=== PATIENT | male | born 1970 | race Hispanic/Latino ===

== ENCOUNTER 2019-10-03 22:30 | Inpatient (IN) | payer OTHER ==
[~2019-10-03 22:30] MED LIST: Iopamidol 370 76% 50 ML VIAL FS ONE; Iopamidol-370 76% 500 ML 1 ML ONE
[2019-10-04] MEDS ORDERED: Morphine 4 MG/ML VIAL ONE ×2 (00:02→03:19)
[2019-10-04] MEDS ORDERED: Ondansetron PF 4 MG/2 ML Vial ONE (00:02)
[2019-10-04 00:15] LABS: #Eosinphils 0.1 thou/uL (0.0-0.7); #Monocytes 0.8 thou/uL (0.11-0.59); #Neutrophils 5.2 thou/uL (1.40-6.50); %Basophils 0.2 % (0.0-1.0); %Eosinophils 1.9 % (0.0-10.0); %Lymphocytes 13.6 % (21.0-51.0); %Monocytes 11.5 % (0.0-10.0); %Neutrophils 72.7 % (42.0-75.0); Hemoglobin 11.2 g/dL (14.0-18.0); Mean Corpuscular HGB CONC 31.5 g/dL (32.0-36.0); Mean Corpuscular Volume 82.3 fL (78.0-98.0); Mean Platelet Volume 6.8 fL (7.4-10.4); Platelet Count 375 thou/uL (130-400); RBC Distribution Width 16.1 % (11.5-14.5); Red Blood Cell (RBC) Count 4.32 mill/uL (4.70-6.10); White Blood Cell (WBC) Count 7.1 thou/uL (4.8-10.8)
[2019-10-04 00:27] LABS: ALT (SGPT) 23 U/L (8-55); AST (SGOT) 18 U/L (5-34); Albumin 3.5 g/dL (3.5-5.0); Alkaline Phosphatase 108 U/L (40-110); Anion Gap 13 mmol/L (10-20); BUN (Urea Nitrogen) 15 mg/dL (8.9-20.6); Bilirubin, Total Less than 0.2 mg/dL (0.2-1.2); Calc. Creatinine Clearance 0 mL/min (70-130); Calcium 8.7 mg/dL (7.8-10.44); Carbon Dioxide 17 mmol/L (22-29); Chloride 109 mmol/L (98-107); Estimated GFR-MDRD 73; Globulin 3.2 g/dL (2.4-3.5); Glucose 139 mg/dL (70-105); Lipase 33 U/L (8-78); Potassium 4.1 mmol/L (3.5-5.1); Protein, Total 6.7 g/dL (6.0-8.3); Sodium 135 mmol/L (136-145)
--- NOTE | 2019-10-04 08:36 | CT ---
PRELIMINARY REPORT/[facility]/EMERGENCY AFTER HOURS PROCEDURE This report was discussed with Beth Raymundo by Imani Shaver on October 04, 2019 03:36:00 CDT. Addendum electronically signed by Imani Shaver on October 04, 2019 3:37:30 AM CDT EXAM: CT Abdomen and Pelvis with Intravenous Contrast CLINICAL HISTORY: M49, pt reports that he had abdominal pain and leaking stool from the old ileostomy site LL abdomen . pt c/o abdominal pain since last Monday. Surgical history of appendectomy, hernia repair, cholostomy, ileostomy. TECHNIQUE: Axial computed tomography images of the abdomen and pelvis with intravenous contrast. CONTRAST: With; ISOVUE & ISOVUE 370,100mL COMPARISON: None provided. FINDINGS: LUNG BASES: No basilar airspace consolidation or pleural effusion. LIVER: Diffuse fatty infiltration of the liver. GALLBLADDER AND BILE DUCTS: The gallbladder is surgically absent. PANCREAS: Unremarkable. SPLEEN: Unremarkable. ADRENAL GLANDS: Unremarkable. KIDNEYS, URETERS, AND BLADDER: Unremarkable. No hydronephrosis or nephrolithiasis. No ureteral or bladder calculi. STOMACH AND BOWEL: Diastasis of the rectus abdominis musculature and a complex anterior abdominal wall hernia resulting in mechanical small bowel obstruction at the level of the stoma approximately 7 cm to the left of midline. APPENDIX: No CT evidence for appendicitis. PERITONEUM: No free fluid. No free air. REPRODUCTIVE: Unremarkable as visualized. VASCULATURE: No aortic aneurysm. BONES: Left ischial decubitus ulcer. Osseous irregularity of the underlying left ischial tuberosity raises t he possibility of osteomyelitis. ABDOMINAL WALL AND SOFT TISSUES: Unremarkable. IMPRESSION: 1. Diastasis of the rectus abdominis musculature and a complex anterior abdominal wall hernia resulti ng in mechanical small bowel obstruction at the level of the stoma approximately 7 cm to the left of midline. 2. Left ischial decubitus ulcer. Osseous irregularity of the underlying left ischial tuberosity raise s the possibility of osteomyelitis. ELECTRONICALLY SIGNED BY: Alhaji Arriola MD October 04, 2019 3:22:42 AM CDT This report is intended for review by the ordering physician only, in accordance of law. If you recei ve this report in error, please call [facility] at [phone]. FINAL REPORT Final report by Dr. Laureano Emergency after-hours study CT ABDOMEN WITH CONTRAST CT PELVIS WITH CONTRAST: DATE: 10/04/2019 HISTORY: 49-year-old male with abdominal pain COMPARISON: None TECHNIQUE: IV injection of iodinated contrast media: administered. Oral contrast media:Administered Isovue FINDINGS: Agree with preliminary report by [facility]. IMPRESSION: High-grade small bowel obstruction at large ventral abdominal hernia. Transcribed Date/Time: 10/04/2019 8:43 AM
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
[2019-10-04] MEDS ORDERED: Sodium Chloride 0.9% 1,000 ML IV SCH (09:25)
[2019-10-04] MEDS ORDERED: Heparin 1,000 UNITS/ML VIAL ONE (09:34)
--- NOTE | 2019-10-04 10:08 | RAD ---
PORTABLE CHEST: Date: 10/04/2019 HISTORY: NG tube placement. FINDINGS: This is a low chest film done specifically of the NG tube placement. NG tube is seen in the fundus of the stomach. Visualized lung rocha show no infiltrates. Heart size appears enlarged. IMPRESSION: NG tube in fundus region of stomach. POS: MAYUR
[2019-10-04] MEDS ORDERED: HumaLOG 300 UNITS/3 ML VIAL SC PRN (11:34)
[2019-10-04] MEDS ORDERED: Dextrose 5% in Water 1,000 ML IV PRN (11:34)
[2019-10-04] MEDS ORDERED: Promethazine HCl 25 MG/ML VIAL IM/IV PRN (11:34)
[2019-10-04] MEDS ORDERED: Dextrose 50% Abboject 50 ML SYRINGE SLOW IVP PRN (11:34)
[2019-10-04] MEDS ORDERED: Ondansetron PF 4 MG/2 ML Vial IVP PRN (11:34)
[2019-10-04 11:47] LABS: SARS-CoV-2 MS2 Positive; SARS-CoV-2 N Gene Negative; SARS-CoV-2 S Gene Negative; SARS-CoV-2 orf1ab Negative
[2019-10-04] MEDS: Ketorolac Tromethamine 30 MG/ML VIAL IVP PRN ×2 (12:30→18:14)
[2019-10-04 14:15] VITALS: BMI 36.0
[2019-10-04] MEDS: Sodium Chloride 0.9% 1,000 ML IV SCH (17:55)
[2019-10-05] MEDS: Ketorolac Tromethamine 30 MG/ML VIAL IVP PRN ×4 (00:55→23:41)
[2019-10-05] MEDS: Sodium Chloride 0.9% 1,000 ML IV SCH ×3 (02:25→17:06)
[2019-10-05 08:23] LABS: #Eosinphils 0.3 thou/uL (0.0-0.7); #Monocytes 0.8 thou/uL (0.11-0.59); #Neutrophils 6.1 thou/uL (1.40-6.50); %Basophils 0.3 % (0.0-1.0); %Eosinophils 3.3 % (0.0-10.0); %Lymphocytes 11.7 % (21.0-51.0); %Monocytes 9.6 % (0.0-10.0); %Neutrophils 75.2 % (42.0-75.0); Hemoglobin 11.7 g/dL (14.0-18.0); Mean Corpuscular HGB CONC 31.6 g/dL (32.0-36.0); Mean Corpuscular Hemoglobin 26.8 pg (27.0-31.0); Mean Corpuscular Volume 84.8 fL (78.0-98.0); Mean Platelet Volume 6.6 fL (7.4-10.4); Platelet Count 382 thou/uL (130-400); RBC Distribution Width 16.2 % (11.5-14.5); Red Blood Cell (RBC) Count 4.36 mill/uL (4.70-6.10); White Blood Cell (WBC) Count 8.1 thou/uL (4.8-10.8)
[2019-10-05 08:34] LABS: Anion Gap 16 mmol/L (10-20); BUN (Urea Nitrogen) 11 mg/dL (8.9-20.6); Calc. Creatinine Clearance 150 mL/min (70-130); Calcium 8.5 mg/dL (7.8-10.44); Carbon Dioxide 18 mmol/L (22-29); Chloride 112 mmol/L (98-107); Estimated GFR-MDRD Greater than 90; Glucose 66 mg/dL (70-105); Potassium 3.6 mmol/L (3.5-5.1); Sodium 142 mmol/L (136-145)
--- NOTE | 2019-10-05 10:18 | PRG ---
DATE OF SERVICE: 10/05/2019 SUBJECTIVE: Mr. Boykin feels better today. He is hungry. He had more NG output overnight, but he has been doing quite a lot of ice chips, still has ostomy output as well. Drainage in his left lower quadrant persist. OBJECTIVE: VITAL SIGNS: He is afebrile and his vital signs are stable. ABDOMEN: Soft. His left-sided incisional hernia is reducible and not tender on exam. His parastomal hernia has loss of domain and not completely reducible. He has persistent purulent drainage in the left lower quadrant. LABORATORY DATA: His white cell count is 8, hemoglobin 11, and platelet count is 382. No bands. Sodium 142, potassium 3.6, creatinine 0.83. His glucoses have been controlled, 90s to 100s. COVID is negative. ASSESSMENT: 1. History of complex abdominal surgery with parastomal and incisional hernias and loss of domain. 2. Likely infected mesh in the left lower quadrant. 3. Partial versus high-grade small bowel obstruction seen in area of left-sided hernia, this hernia is reducible. PLAN: Continue conservative management. He has no urgency for operation at this point. His hernias are going to be very difficult to fix and would most certainly require some sort of component separation, would prefer not to operate on him in this setting, get him to a tertiary care center to do that. My plan was small-bowel follow-through tomorrow to further evaluate this obstruction and if that is normal, discontinue the NG and start diet, and then Monday likely perform incision and drainage of this left lower quadrant wound where I suspect he has infected mesh. Job ID: [id number]
[2019-10-05] MEDS: Fentanyl 100 MCG/2 ML VIAL SLOW IVP PRN ×2 (11:00→21:31)
[2019-10-06] MEDS: Sodium Chloride 0.9% 1,000 ML IV SCH ×4 (01:37→18:29)
[2019-10-06] MEDS: Fentanyl 100 MCG/2 ML VIAL SLOW IVP PRN ×5 (03:25→22:57)
[2019-10-06] MEDS ORDERED: MD-Gastroview 120 ML BOT ONE (09:20)
--- NOTE | 2019-10-06 09:55 | PRG ---
DATE OF SERVICE: 10/06/2019 SUBJECTIVE: Mr. Boykin feels more bloated today. OBJECTIVE: VITAL SIGNS: He is afebrile. Vital signs are stable. NG output overnight is only 250 with 300 of stool. ABDOMEN: Soft. The left-sided hernia is reducible. He has persistent purulent drainage in the left lower quadrant. ASSESSMENT: Partial to partial small-bowel obstruction, likely in his abdomen. Question if related to this left-sided hernia, although the hernia is freely reducible. PLAN: Gastrografin small-bowel follow-through today. I think his symptoms are mostly chronic. If the small-bowel follow-through is normal, we will allow him clear liquids and then plan to open up his left lower quadrant wound where the fascia is likely infected. Job ID: [id number]
--- NOTE | 2019-10-06 11:55 | RAD ---
Exam: Gastrografin small bowel HISTORY: Evaluate for small bowel obstruction COMPARISON: none Correlation: Abdomen and pelvic CT 10/04/2019 FINDINGS: Gastrografin was administered via NG tube. Gastrografin opacifies distended loops of proxim al small bowel. Despite dilatation, contrast does opacify the bag at the level of the right lower quadrant ostomy. Distal small bowel loops appear to be decompressed. IMPRESSION: Probable partial small bowel obstruction.
[2019-10-07] MEDS: Fentanyl 100 MCG/2 ML VIAL SLOW IVP PRN ×2 (01:55→05:21)
[2019-10-07] MEDS: Sodium Chloride 0.9% 1,000 ML IV SCH ×3 (01:56→15:00)
[2019-10-07] MEDS ORDERED: Fentanyl 100 MCG/2 ML VIAL ONE ×3 (11:31→13:25)
[2019-10-07] MEDS ORDERED: Lidocaine 2% Jelly 5 ML TUBE ONE (11:32)
[2019-10-07] MEDS ORDERED: Glycopyrrolate 0.2 MG/ML 5 ML SYRINGE ONE (11:33)
[2019-10-07] MEDS ORDERED: Ondansetron PF 4 MG/2 ML Vial ONE (11:33)
[2019-10-07] MEDS ORDERED: Rocuronium Bromide 10 MG/ML (10ML VIAL) ONE (11:33)
[2019-10-07] MEDS ORDERED: PHENYLEPHRINE-NS 100 MCG/ML 10 ML SYRINGE ONE (11:33)
[2019-10-07] MEDS ORDERED: Lidocaine 1% PF 5 ML VIAL ONE (11:33)
[2019-10-07] MEDS ORDERED: PROPOFOL 200 MG/20 ML VIAL ONE (11:33)
[2019-10-07] MEDS ORDERED: Promethazine HCl 25 MG/ML VIAL SLOW IVP PRN (12:43)
[2019-10-07] MEDS ORDERED: Promethazine HCl 25 MG/ML VIAL IM PRN (12:43)
[2019-10-07] MEDS ORDERED: Ondansetron HCl/PF 4 MG/2 ML Vial IVP PRN (12:43)
--- NOTE | 2019-10-07 13:08 | OP ---
DATE OF PROCEDURE: 10/07/2019 PREOPERATIVE DIAGNOSIS: Left lower quadrant chronic wound. POSTOPERATIVE DIAGNOSES: 1. Left lower quadrant chronic wound. 2. Infected foreign body, left lower quadrant wound. ANESTHESIA: General. ESTIMATED BLOOD LOSS: Minimal. COMPLICATIONS: None. SPECIMENS: Cultures taken for anaerobes and aerobes. FINDINGS: The 2 sinus tracts in the left lower quadrant go down to chronic foreign body, suture and mesh. DESCRIPTION OF PROCEDURE: Small amount of exposed mesh was debrided. All foreign body was removed. Wound was irrigated and packed using wet-to-dry saline-soaked gauze. The patient will need a wound VAC and chronic wound care. We will await cultures for antibiotics. The patient was sent to Recovery in stable condition. All instrument counts, needle counts, and lap counts were correct. Job ID: [id number]
[2019-10-07] MEDS: HYDROcodone/Acetaminophen 7.5/325 mg Tablet PO PRN ×2 (17:55→22:55)
[2019-10-07] MEDS: CEFAZOLIN 2 GM in Premix Bag 1 BAG IVPB SCH (21:23)
[2019-10-08] MEDS: HYDROcodone/Acetaminophen 7.5/325 mg Tablet PO PRN ×3 (04:19→19:52)
[2019-10-08] MEDS: Sodium Chloride 0.9% 1,000 ML IV SCH ×2 (04:24→18:13)
[2019-10-08] MEDS: CEFAZOLIN 2 GM in Premix Bag 1 BAG IVPB SCH ×3 (05:35→21:01)
[2019-10-08] MEDS: Fentanyl 100 MCG/2 ML VIAL SLOW IVP PRN ×3 (08:26→23:18)
--- NOTE | 2019-10-08 10:40 | PRG ---
DATE OF SERVICE: 10/08/2019 SUBJECTIVE: Mr. Boykin has no complaints. He is hungry. The nurse notes significant drainage from the left lower quadrant wound. The wound VAC was displaced. OBJECTIVE: VITAL SIGNS: He is afebrile. Vital signs are stable. ABDOMEN: Soft, minimally distended. No abdominal pain. Left lower quadrant wound has wound VAC in place. ASSESSMENT: Left lower quadrant infected mesh, status post debridement. PLAN: Continue wound VAC, he will need ocean transportation intermediary. We will await culture results, likely will need antibiotics IV as well. We will start planning for him to go somewhere where they can do complex wound care and IV antibiotics. Job ID: [id number]
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
[2019-10-09] MEDS: Fentanyl 100 MCG/2 ML VIAL SLOW IVP PRN ×4 (02:15→20:19)
[2019-10-09 05:57] LABS: #Eosinphils 0.1 thou/uL (0.0-0.7); #Lymphocytes 0.8 thou/uL (1.20-3.40); #Monocytes 0.6 thou/uL (0.11-0.59); %Basophils 0.3 % (0.0-1.0); %Eosinophils 2.2 % (0.0-10.0); %Lymphocytes 12.1 % (21.0-51.0); %Monocytes 9.6 % (0.0-10.0); %Neutrophils 75.8 % (42.0-75.0); Hemoglobin 11.2 g/dL (14.0-18.0); Mean Corpuscular HGB CONC 31.9 g/dL (32.0-36.0); Mean Corpuscular Hemoglobin 26.7 pg (27.0-31.0); Mean Corpuscular Volume 83.7 fL (78.0-98.0); Mean Platelet Volume 6.4 fL (7.4-10.4); Platelet Count 346 thou/uL (130-400); RBC Distribution Width 15.8 % (11.5-14.5); White Blood Cell (WBC) Count 6.5 thou/uL (4.8-10.8)
[2019-10-09] MEDS: CEFAZOLIN 2 GM in Premix Bag 1 BAG IVPB SCH (06:08)
[2019-10-09 06:17] LABS: Anion Gap 12 mmol/L (10-20); BUN (Urea Nitrogen) 4 mg/dL (8.9-20.6); Calc. Creatinine Clearance 150 mL/min (70-130); Calcium 8.3 mg/dL (7.8-10.44); Carbon Dioxide 21 mmol/L (22-29); Chloride 108 mmol/L (98-107); Estimated GFR-MDRD Greater than 90; Glucose 107 mg/dL (70-105); Potassium 3.3 mmol/L (3.5-5.1); Sodium 138 mmol/L (136-145)
[2019-10-09] MEDS: Sodium Chloride 0.9% 1,000 ML IV SCH (06:31)
[2019-10-09] MEDS: HYDROcodone/Acetaminophen 7.5/325 mg Tablet PO PRN ×2 (08:11→17:15)
[2019-10-09] MEDS ORDERED: Sodium Chloride 0.9% 1,000 ML IV SCH (08:12)
[2019-10-09] MEDS: metroNIDAZOLE 500 MG TAB PO SCH ×3 (08:37→20:19)
[2019-10-10] MEDS: Fentanyl 100 MCG/2 ML VIAL SLOW IVP PRN ×3 (00:29→20:45)
[2019-10-10] MEDS: HYDROcodone/Acetaminophen 7.5/325 mg Tablet PO PRN ×3 (03:36→16:54)
[2019-10-10] MEDS: metroNIDAZOLE 500 MG TAB PO SCH ×3 (08:07→20:40)
[2019-10-10] MEDS ORDERED: Ondansetron ODT 4 MG TAB SL PRN (10:10)
[2019-10-10] MEDS ORDERED: Ondansetron PF 4 MG/2 ML Vial IVP PRN (10:10)
--- NOTE | 2019-10-10 11:01 | PRG ---
DATE OF SERVICE: 10/10/2019 SUBJECTIVE: Mr. Boykin is seen on dressing change today. He is complaining of pain at his open wound site. No nausea or vomiting. He is tolerating regular food. OBJECTIVE: He is afebrile. Vital signs are stable. He has stool and air in his bag. His abdominal wound is seen on dressing change. It has a foul smell. It smells like stool. There is some stool stained appearing purulent material in the wound VAC. 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 PLAN: For now, we will allow him to continue diet, see what the drainage does. Continue wound VAC. May have to switch to Instill VAC. If this is in fact the fistula, his hospitalization will be prolonged because there are no good options for underlying surgery. The presence of the foreign body would make any closure of the fistula unlikely. Ideally, he would be transferred to [place] for higher level of care and for what is likely going to be long-term wound care nutrition issues managing this fistula. Job ID: [id number]
[2019-10-11] MEDS: HYDROcodone/Acetaminophen 7.5/325 mg Tablet PO PRN ×3 (00:35→20:31)
[2019-10-11] MEDS: Fentanyl 100 MCG/2 ML VIAL SLOW IVP PRN ×3 (05:06→16:23)
[2019-10-11 05:38] LABS: #Eosinphils 0.3 thou/uL (0.0-0.7); #Lymphocytes 1.2 thou/uL (1.20-3.40); #Monocytes 0.7 thou/uL (0.11-0.59); #Neutrophils 3.7 thou/uL (1.40-6.50); %Basophils 0.4 % (0.0-1.0); %Eosinophils 4.7 % (0.0-10.0); %Monocytes 11.1 % (0.0-10.0); %Neutrophils 62.8 % (42.0-75.0); Hemoglobin 11.6 g/dL (14.0-18.0); Mean Corpuscular HGB CONC 30.9 g/dL (32.0-36.0); Mean Corpuscular Hemoglobin 26.4 pg (27.0-31.0); Mean Corpuscular Volume 85.7 fL (78.0-98.0); Mean Platelet Volume 6.6 fL (7.4-10.4); Platelet Count 349 thou/uL (130-400); RBC Distribution Width 16.1 % (11.5-14.5); Red Blood Cell (RBC) Count 4.39 mill/uL (4.70-6.10); White Blood Cell (WBC) Count 5.9 thou/uL (4.8-10.8)
[2019-10-11 05:57] LABS: Anion Gap 13 mmol/L (10-20); BUN (Urea Nitrogen) 9 mg/dL (8.9-20.6); Calc. Creatinine Clearance 135 mL/min (70-130); Calcium 8.9 mg/dL (7.8-10.44); Carbon Dioxide 23 mmol/L (22-29); Chloride 106 mmol/L (98-107); Estimated GFR-MDRD 87; Glucose 86 mg/dL (70-105); Potassium 3.7 mmol/L (3.5-5.1); Sodium 138 mmol/L (136-145)
[2019-10-11] MEDS: metroNIDAZOLE 500 MG TAB PO SCH (08:29)
[2019-10-11] MEDS: 1/2 NS w/KCL 20 mEq 1,000 ML IV SCH (08:30)
--- NOTE | 2019-10-11 08:36 | PRG ---
DATE OF SERVICE: 10/11/2019 SUBJECTIVE: Mr. Boykin had more stool coming out of his left lower quadrant wound yesterday. The VAC was changed to the Instill VAC, which seems to be controlling the drainage much better. He has pain in the area. OBJECTIVE: GENERAL: He is afebrile. VITAL SIGNS: Stable. ABDOMEN: Soft. His peristomal and abdominal hernias are all stable. Wound VAC is present in the left lower quadrant. LABORATORY DATA: White blood cell count is 5, hemoglobin 11, and platelet count is 349. Sodium 138, potassium 3.7, and creatinine 0.92. ASSESSMENT: 1. 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 I have already opened the area in the OR to control the drainage and remove some foreign body. 2. Diabetes mellitus. PLAN: He will have to be on TPN for now. I have made n.p.o. except medications, ice chips, hard candy. We will write for dietary to help us with nutrition racks. PICC line to be placed today. We will have the hospitalist to help us follow him for medical issues. Dr. Coates covering for me this weekend. He is on Levaquin and Flagyl. He had Pseudomonas in his cultures. Job ID: [id number]
[2019-10-11] MEDS ORDERED: Iopamidol 300 61% 50 ML VIAL FS ONE (10:17)
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
--- NOTE | 2019-10-11 12:12 | SPC ---
Upper extremity PICC unsuccessful attempt bilateral HISTORY: Infection. Need for long-term antibiotics. Fluoroscopy time 4.3 minutes. FINDINGS: After explaining the procedure and answering all questions, the left upper extremity was pr epped and draped in the usual sterile fashion. Sterile technique, buffered local anesthesia, sonographic guidance, and a 22-gauge needle were used to carefully access the left basilic vein. A 0. 018 guidewire was passed with some difficulty to the right atrium. A 5 [place] PICC, however, would not pass due to the area of focal stricture at the left axillary vein. Small amount of contrast was i njected for confirmation of findings. Attempts were made to redirect the wire through collaterals but were unsuccessful. Sonographic attempts to access the cephalic and brachial veins were unsuccessful due to their small s ize and surrounding tissues. The right upper extremity was then prepped and draped in usual sterile fashion. Sterile technique, bu ffered local anesthesia, and sonographic guidance were used with multiple attempts to access the cephalic, brachial, and basilic veins. None were successfully accessed. Small amount of contrast was injected into the right upper arm IV, opacifying small peripheral superf icial collaterals which eventually fed the axillary vein. A dominant major vein was not opacified for access. After multiple attempts over the course of approximately 1 hour, further attempts was abandoned. Dee ent tolerated the procedure well and was returned in unchanged condition. IMPRESSION : Unsuccessful attempt at upper extremity PICC placement. Due to to stricture of central veins and size /depth of peripheral veins. Repeat attempt could be made after IV access of the hand was able to be acquired. Contrast could be i njected for fluoroscopic access placement attempt of an upper extremity PICC.
[2019-10-11] MEDS: Piperacillin/Tazobactam 3.375 GM in Sodium Chloride 0.9% 100 ML IVPB SCH ×2 (12:26→16:22)
[2019-10-11] MEDS: Vancomycin 1.5 GRAM/300 ML BAG 1.5 GM in Premix Bag 1 BAG IVPB SCH ×2 (12:59→20:33)
--- NOTE | 2019-10-11 13:38 | PQF ---
DATE: 10-11-19 ATTN: DR. CARLYN HENAO Please exercise your independent, professional judgment in responding to the clarification form. Clinical indicators are provided on the bottom of this form for your review Please check appropriate box(s): It is my understanding that clarifications on documentation should come from the attending physician. [ ] I (concur) with the Wound Care findings as stated below. [ ] Pressure Ulcer: [ ] Location: POA: [ ] Yes [ ] No [ ] Unable to determine Stage (I to IV): (Left Right Bilateral N/ A ) [ ] Gangrene present [ ] Yes [ ] ischemic gangrene [ ] gas gangrene [ ] No [ ] No pressure ulcer diagnosis [ ] Deep tissue injury [ ] Other diagnosis [ ] Unable to determine In addition, please specify: Present on Admission (POA): [ ] Yes [ ] No [ ] Unable to determine For continuity of documentation, please document condition throughout progress notes and discharge summary. Thank You. CLINICAL INDICATORS - SIGNS / SYMPTOMS / LABS / RSULTS AND LOCATION IN MR: T 10-05-19: LEFT LOWER BUTTOCK PRESSURE ULCER STAGE 4, HEALING, SCAR TISSUE NOTED SURROUNDING WOUND. PACKED WITH 1/4 INCH IODOFORM GAUZE. COVERED WITH DRESSING. RISK FACTORS / RSULTS AND LOCATION IN MR: ER NOTES 10-03-19: AMPUTATION TO LLE WCT 10-05-19: ILEOSTOMY, MULTIPLE ABD SURGERIES, MULTIPLE HERNIAS, DM, HTN, HLD, HYPOTHYROIDISM, FORMER DRUG USER TREATMENTS / RSULTS AND LOCATION IN MR: WCT: 10-05-19: PACKED WITH 1/4 INCH IODOFORM GAUZE. COVERED WITH DRESSING. PRESSURE ULCER STAGES Stage I: Erythema Stage II: Partial thickness Stage III: Full thickness Stage IV: Necrosis to muscle/bone (This form is maintained as a part of the permanent medical record) 2014 [employer] All Rights Reserved [email or web address]
[2019-10-11] MEDS: Enoxaparin Sodium 40 MG/0.4 ML SYRINGE SC SCH (20:31)
[2019-10-12] MEDS: Piperacillin/Tazobactam 3.375 GM in Sodium Chloride 0.9% 100 ML IVPB SCH ×4 (00:13→17:32)
[2019-10-12] MEDS: Fentanyl 100 MCG/2 ML VIAL SLOW IVP PRN ×2 (00:14→09:26)
[2019-10-12] MEDS: HYDROcodone/Acetaminophen 7.5/325 mg Tablet PO PRN ×3 (04:16→20:48)
[2019-10-12] MEDS: Levothyroxine Sodium 50 MCG TAB PO SCH (04:16)
[2019-10-12] MEDS: 1/2 NS w/KCL 20 mEq 1,000 ML IV SCH ×3 (04:19→16:22)
[2019-10-12] MEDS: Vancomycin 1.5 GRAM/300 ML BAG 1.5 GM in Premix Bag 1 BAG IVPB SCH ×2 (06:06→16:23)
[2019-10-12] MEDS: Venlafaxine HCl XR 150 MG CAP PO SCH (08:14)
--- NOTE | 2019-10-12 09:50 | PDOC.HOSPP ---
- Subjective Encounter Date: 10/12/19 Encounter Time: 09:00 Subjective: Patient seen and examined for med mngt. Abd pain improving. No nausea. No new complaints. No overnight events - Objective Vital Signs & Weight: Vital Signs (12 hours) Temp Pulse Resp BP Pulse Ox 10/12/19 07:07 98.2 F 69 20 92/62 98 Weight Admit Weight 216 lb 11.43 oz Weight 216 lb 11.43 oz I&O: 10/11/19 10/12/19 10/13/19 06:59 06:59 06:59 Intake Total 1050 400 Output Total 780 620 Balance 270 -220 Result Diagrams: 10/11/19 05:17 10/11/19 05:17 Additional Labs: Accuchecks 10/12/19 10/11/19 10/11/19 04:04 19:44 15:23 POC Glucose 84 120 H 87 10/11/19 11:26 POC Glucose 112 H Radiology Reviewed by me: Yes (CXR - Negative) Hospitalist ROS - Review of Systems Respiratory: denies: cough, dry, shortness of breath, hemoptysis, SOB with excertion, pleuritic pain, sputum, wheezing, other Cardiovascular: denies: chest pain, palpitations, orthopnea, paroxysmal noc. dyspnea, edema, light headedness, other Gastrointestinal: denies: nausea, vomiting, abdominal pain, diarrhea, constipation, melena, hematochezia, other - Medication Medications: Active Medications Generic Name Dose Route Start Last Admin Trade Name Freq PRN Reason Stop Dose Admin Hydrocodone Bitart/Acetaminophen 1 tab 10/07/19 14:00 10/08/19 19:52 [place] 7.5/325 PO 1 tab Q6H PRN Administration Mild Pain (1-3) Hydrocodone Bitart/Acetaminophen 2 tab 10/07/19 14:00 10/12/19 04:16 [place] 7.5/325 PO 2 tab Q6H PRN Administration Moderate Pain (4-6) Enoxaparin Sodium 40 mg 10/11/19 21:00 10/11/19 20:31 Lovenox SC 40 mg 2100 ELY Administration Fentanyl 25 mcg 10/04/19 11:34 10/12/19 09:26 Sublimaze SLOW IVP 25 mcg Q2H PRN Administration Mild Pain (1-3) Fentanyl 50 mcg 10/04/19 11:34 10/11/19 05:06 Sublimaze SLOW IVP 50 mcg Q2H PRN Administration Moderate to Severe Pain (6-10) Dextrose/Water 1,000 mls @ 0 mls/hr 10/04/19 11:34 10/05/19 19:40 D5w IV 1,000 mls .Q0M PRN Administration Hypoglycemia As Directed Potassium Chloride/Sodium Chloride 1,000 mls @ 100 mls/hr 10/11/19 08:15 06:00 1/2 Ns W/Kcl 20 Meq IV Not Given .Q10H ELY Piperacillin Sod/Tazobactam 100 mls @ 200 mls/hr 10/11/19 12:00 10/12/19 04: 19 Sod 3.375 gm/ Sodium Chloride IVPB 100 mls Q6HR ELY Administration Vancomycin HCl 1.5 gm/ Device 300 mls @ 200 mls/hr 10/11/19 13:00 10/12/19 06 :06 IVPB 300 mls Q8H ELY Administration Levothyroxine Sodium 50 mcg 10/12/19 06:00 10/12/19 04:16 Synthroid PO 50 mcg 0600 ELY Administration Ondansetron HCl 4 mg 10/10/19 10:10 10/11/19 12:36 Zofran IVP 4 mg Q6H PRN Administration Nausea/Vomiting Sodium Chloride 10 ml 10/11/19 09:00 10/12/19 08:15 Flush - Normal Saline IVF Not Given Q12HR ELY Venlafaxine HCl 150 mg 10/12/19 09:00 10/12/19 08:14 Effexor Xr PO 150 mg DAILY ELY Administration - Exam General Appearance: NAD Heart: RRR, no gallops Respiratory: no wheezes, no ronchi Gastrointestinal: soft, non-distended Gastrointestinal - other findings: wound vac/stomy + Extremities: no cyanosis, no clubbing Hosp A/P - Plan continue antibiotics, DVT proph w/lovenox Enterocutaneous fistula HTN DM2 Left lower buttock ulcer stage 4 - POA Obesity BMI 36.1 Hyponatremia/hypokalemia CKD 2 Hypothyroidism Chronic anemia prob due to nutritional def PLAN: Cont Empiric Atbx with Vancomycin level monitoring Replace Potassium Cont sliding scale AM labs Cont wound care
[2019-10-12 13:02] LABS: Vancomycin, Trough 34.8 ug/mL
[2019-10-12] MEDS ORDERED: Saccharomyces boulardii 250 MG CAP PO SCH (15:00)
--- NOTE | 2019-10-12 16:00 | PRG ---
DATE OF SERVICE: 10/12/2019 SUBJECTIVE: Mr. Boykin is hospital day #8, followed admission for abdominal pain. He has a horrible abdominal wall problem with multiple scars and hernias including a parastomal hernia. He has subsequently been found to have an enterocutaneous fistula in the left lower quadrant, which has a wound VAC over this. He is currently taking clear liquids and tolerating this well. A PICC line was ordered yesterday, but was unable to be performed because of inadequate peripheral veins. He therefore does not have a central line at this time. He has no complaints. He notes mild discomfort in the left lower quadrant at the site of the enterocutaneous fistula. PHYSICAL EXAMINATION: VITAL SIGNS: He is afebrile. Pulse 70. Blood pressure was 98/63. LUNGS: Clear to auscultation. ABDOMEN: Soft and nontender with normoactive bowel sounds. He has a viable ostomy in the right lower quadrant with stool present in his ostomy bag. ASSESSMENT: The patient with complex problems regarding the loss of domain in his abdominal wall with what appears to be almost no residual muscular tissue left to repair. He currently has an enterocutaneous fistula as well in the left lower quadrant. I believe the plan is to place a central line/ catheter and initiate TPN. Until then, we will continue clear liquids, IV fluids, vancomycin, and Zosyn. Job ID: [id number]
[2019-10-12] MEDS: Enoxaparin Sodium 40 MG/0.4 ML SYRINGE SC SCH (20:48)
[2019-10-12] MEDS: Famotidine 20 MG TAB PO SCH (20:48)
[2019-10-13] MEDS: Piperacillin/Tazobactam 3.375 GM in Sodium Chloride 0.9% 100 ML IVPB SCH ×4 (00:30→17:21)
[2019-10-13] MEDS: Fentanyl 100 MCG/2 ML VIAL SLOW IVP PRN ×3 (00:30→18:28)
[2019-10-13] MEDS: 1/2 NS w/KCL 20 mEq 1,000 ML IV SCH ×3 (01:35→20:01)
[2019-10-13] MEDS: HYDROcodone/Acetaminophen 7.5/325 mg Tablet PO PRN ×3 (05:05→22:33)
[2019-10-13] MEDS: Levothyroxine Sodium 50 MCG TAB PO SCH (05:05)
[2019-10-13 06:36] LABS: #Eosinphils 0.3 thou/uL (0.0-0.7); #Lymphocytes 0.8 thou/uL (1.20-3.40); #Monocytes 0.5 thou/uL (0.11-0.59); %Basophils 0.4 % (0.0-1.0); %Eosinophils 4.9 % (0.0-10.0); %Lymphocytes 14.1 % (21.0-51.0); %Monocytes 9.4 % (0.0-10.0); %Neutrophils 71.1 % (42.0-75.0); Hemoglobin 12.1 g/dL (14.0-18.0); Mean Corpuscular Hemoglobin 26.6 pg (27.0-31.0); Mean Corpuscular Volume 85.7 fL (78.0-98.0); Mean Platelet Volume 7.1 fL (7.4-10.4); Platelet Count 334 thou/uL (130-400); RBC Distribution Width 15.5 % (11.5-14.5); Red Blood Cell (RBC) Count 4.55 mill/uL (4.70-6.10); White Blood Cell (WBC) Count 5.6 thou/uL (4.8-10.8)
[2019-10-13 07:04] LABS: ALT (SGPT) Less than 7 U/L (8-55); AST (SGOT) 18 U/L (5-34); Albumin 3.3 g/dL (3.5-5.0); Alkaline Phosphatase 77 U/L (40-110); Anion Gap 14 mmol/L (10-20); BUN (Urea Nitrogen) 7 mg/dL (8.9-20.6); Bilirubin, Total Less than 0.2 mg/dL (0.2-1.2); Calc. Creatinine Clearance 132 mL/min (70-130); Calcium 8.7 mg/dL (7.8-10.44); Carbon Dioxide 19 mmol/L (22-29); Chloride 108 mmol/L (98-107); Estimated GFR-MDRD 85; Glucose 79 mg/dL (70-105); Magnesium 1.6 mg/dL (1.6-2.6); Phosphorus 3.1 mg/dL (2.3-4.7); Potassium 4.5 mmol/L (3.5-5.1); Protein, Total 6.3 g/dL (6.0-8.3); Sodium 136 mmol/L (136-145)
[2019-10-13] MEDS: Famotidine 20 MG TAB PO SCH ×2 (08:11→20:00)
[2019-10-13] MEDS: Saccharomyces boulardii 250 MG CAP PO SCH (08:11)
[2019-10-13] MEDS ORDERED: Magnesium 2 GM/50 ML 2 GM in Premix Bag 1 BAG IVPB SCH (08:15)
[2019-10-13] MEDS: Venlafaxine HCl XR 150 MG CAP PO SCH (08:15)
--- NOTE | 2019-10-13 09:41 | PRG ---
DATE OF SERVICE: 10/13/2019 SUBJECTIVE: Mr. Boykin remains hospitalized on the medical floor. This is hospital day #9 for him following admission for abdominal pain. He has no new complaints. He has a wound VAC in place in the left lower quadrant over the enterocutaneous fistula. His ostomy in the right side of the abdomen is working well. The patient is tolerating liquids. OBJECTIVE: VITAL SIGNS: On examination, he is afebrile. Pulse 61, blood pressure 104/66. LUNGS: Clear to auscultation. ABDOMEN: Soft, nontender, nondistended. LABORATORY DATA: His CBC from today shows white blood cell count of 5.6, hemoglobin of 12.1. His electrolytes show that his carbon dioxide is a little bit low, his chloride is a little bit high. He is hypoalbuminemic with an albumin of 3.3. ASSESSMENT: The patient is stable with an ongoing horrible abdominal wall problem in light of his multiple hernias, multiple prior operations, mesh within his abdomen, and the current enterocutaneous fistula. I believe Dr. Madrigal plans to place a Smart catheter for long-term intravenous nutrition tomorrow. Job ID: [id number]
[2019-10-13 12:39] LABS: Vancomycin, Trough 8.5 ug/mL
[2019-10-13] MEDS ORDERED: Vancomycin 1.5 GRAM/300 ML BAG 1.5 GM in Premix Bag 1 BAG IVPB SCH (13:00)
[2019-10-13] MEDS: Vancomycin 1.5 GRAM/300 ML BAG 1.5 GM in Premix Bag 1 BAG IVPB SCH (13:37)
[2019-10-13] MEDS: Vancomycin HCl 1.25 GM in Sodium Chloride 0.9% 250 ML 250 ML IVPB SCH (14:37)
--- NOTE | 2019-10-13 14:43 | PDOC.HOSPP ---
- Subjective Encounter Date: 10/13/19 Encounter Time: 10:30 Subjective: Patient seen and examined for med mngt. No nausea. Abd pain controlled. No new complaints. No overnight events - Objective Vital Signs & Weight: Vital Signs (12 hours) Temp Pulse Resp BP Pulse Ox 10/13/19 08:10 95 10/13/19 07:18 97.3 F L 61 18 104/66 95 Weight Admit Weight 216 lb 11.43 oz Weight 216 lb 11.43 oz I&O: 10/12/19 10/13/19 10/14/19 06:59 06:59 06:59 Intake Total 400 940 Output Total 620 3125 Balance -220 -1135 Result Diagrams: 10/13/19 05:49 10/13/19 05:49 Additional Labs: Accuchecks 10/13/19 10/13/19 10/12/19 11:22 04:37 19:45 POC Glucose 111 H 88 154 H 10/12/19 16:06 POC Glucose 126 H Hospitalist ROS - Review of Systems Respiratory: denies: cough, dry, shortness of breath, hemoptysis, SOB with excertion, pleuritic pain, sputum, wheezing, other Cardiovascular: denies: chest pain, palpitations, orthopnea, paroxysmal noc. dyspnea, edema, light headedness, other - Medication Medications: Active Medications Generic Name Dose Route Start Last Admin Trade Name Freq PRN Reason Stop Dose Admin Hydrocodone Bitart/Acetaminophen 1 tab 10/07/19 14:00 10/08/19 19:52 [place] 7.5/325 PO 1 tab Q6H PRN Administration Mild Pain (1-3) Hydrocodone Bitart/Acetaminophen 2 tab 10/07/19 14:00 10/13/19 13:35 [place] 7.5/325 PO 2 tab Q6H PRN Administration Moderate Pain (4-6) Enoxaparin Sodium 40 mg 10/11/19 21:00 10/12/19 20:48 Lovenox SC 40 mg 2100 ELY Administration Famotidine 20 mg 10/12/19 21:00 10/13/19 08:11 Pepcid PO 20 mg BID ELY Administration Fentanyl 25 mcg 10/04/19 11:34 10/13/19 10:07 Sublimaze SLOW IVP 25 mcg Q2H PRN Administration Mild Pain (1-3) Fentanyl 50 mcg 10/04/19 11:34 10/11/19 05:06 Sublimaze SLOW IVP 50 mcg Q2H PRN Administration Moderate to Severe Pain (6-10) Dextrose/Water 1,000 mls @ 0 mls/hr 10/04/19 11:34 10/05/19 19:40 D5w IV 1,000 mls .Q0M PRN Administration Hypoglycemia As Directed Potassium Chloride/Sodium Chloride 1,000 mls @ 100 mls/hr 10/11/19 08:15 13:36 1/2 Ns W/Kcl 20 Meq IV Not Given .Q10H ELY Piperacillin Sod/Tazobactam 100 mls @ 200 mls/hr 10/11/19 12:00 10/13/19 13: 17 Sod 3.375 gm/ Sodium Chloride IVPB 100 mls Q6HR ELY Administration Vancomycin HCl 1.25 gm/ Sodium 250 mls @ 166.667 mls/hr 10/13/19 13:00 14:37 Chloride IVPB 250 mls 0100,1300 ELY Administration Levothyroxine Sodium 50 mcg 10/12/19 06:00 10/13/19 05:05 Synthroid PO 50 mcg 0600 ELY Administration Ondansetron HCl 4 mg 10/10/19 10:10 10/11/19 12:36 Zofran IVP 4 mg Q6H PRN Administration Nausea/Vomiting Saccharomyces Boulardii 250 mg 10/13/19 09:00 10/13/19 08:11 Florastor PO 250 mg DAILY ELY Administration Sodium Chloride 10 ml 10/11/19 09:00 10/13/19 08:11 Flush - Normal Saline IVF Not Given Q12HR ELY Venlafaxine HCl 150 mg 10/12/19 09:00 10/13/19 08:15 Effexor Xr PO 150 mg DAILY ELY Administration - Exam General Appearance: NAD Heart: RRR, no gallops Respiratory: no wheezes, no ronchi Gastrointestinal: no guarding, no rigidity Gastrointestinal - other findings: ostomy/vac + Extremities: no cyanosis, no clubbing Hosp A/P - Plan DVT proph w/SCDs Enterocutaneous fistula HTN DM2 Left lower buttock ulcer stage 4 Obesity BMI 36.1 Hyponatremia/hypokalemia/Hypomagnesemia CKD 2 Hypothyroidism Chronic anemia prob due to nutritional def PLAN: Cont Vanc/Zosyn Monitor Vancomycin level Replace Magnesium Cont sliding scale and other meds as above Cont wound care AM labs
[2019-10-13] MEDS: Enoxaparin Sodium 40 MG/0.4 ML SYRINGE SC SCH (20:00)
[2019-10-14] MEDS: Piperacillin/Tazobactam 3.375 GM in Sodium Chloride 0.9% 100 ML IVPB SCH ×4 (00:05→17:11)
[2019-10-14] MEDS: Fentanyl 100 MCG/2 ML VIAL SLOW IVP PRN ×3 (01:52→10:50)
[2019-10-14] MEDS: Vancomycin HCl 1.25 GM in Sodium Chloride 0.9% 250 ML 250 ML IVPB SCH ×2 (01:52→14:39)
[2019-10-14] MEDS: Levothyroxine Sodium 50 MCG TAB PO SCH (05:23)
[2019-10-14] MEDS: HYDROcodone/Acetaminophen 7.5/325 mg Tablet PO PRN ×2 (05:27→17:59)
[2019-10-14] MEDS: Venlafaxine HCl XR 150 MG CAP PO SCH (08:04)
[2019-10-14] MEDS: 1/2 NS w/KCL 20 mEq 1,000 ML IV SCH ×2 (08:04→15:33)
[2019-10-14] MEDS: Famotidine 20 MG TAB PO SCH ×2 (08:04→20:12)
[2019-10-14] MEDS: Saccharomyces boulardii 250 MG CAP PO SCH (08:04)
[2019-10-14] MEDS ORDERED: Lidocaine 1% PF 5 ML VIAL ONE (11:22)
[2019-10-14] MEDS ORDERED: PROPOFOL 200 MG/20 ML VIAL ONE (11:22)
[2019-10-14] MEDS ORDERED: Lidocaine 2% w/Epinephrine 1:200K 20 ML VIAL ONE (11:27)
[2019-10-14] MEDS ORDERED: Bupivacaine 0.25% HCL 30 ML VIAL ONE (11:27)
[2019-10-14] MEDS ORDERED: Heparin 10,000 UNITS/1 ML VIAL ONE (11:27)
[2019-10-14] MEDS ORDERED: EPINEPHrine 1 MG/ML AMP ONE (11:27)
[2019-10-14] MEDS ORDERED: Sodium Chloride 0.9% 20 ML ONE (11:27)
[2019-10-14] MEDS ORDERED: Lidocaine 1% w/Epinephrine 1:100K 20 ML VIAL ONE (11:29)
[2019-10-14] MEDS ORDERED: Fentanyl 100 MCG/2 ML VIAL ONE ×2 (11:38→13:16)
[2019-10-14] MEDS ORDERED: PROPOFOL 40 ML ONE (11:38)
[2019-10-14] MEDS ORDERED: HYDROmorphone 2 MG/ML VIAL SLOW IVP PRN (12:05)
[2019-10-14] MEDS ORDERED: Meperidine HCl/PF 25 MG/ML VIAL SLOW IVP PRN (12:05)
[2019-10-14] MEDS ORDERED: Promethazine HCl 25 MG/ML VIAL SLOW IVP PRN (12:05)
[2019-10-14] MEDS ORDERED: Promethazine HCl 25 MG/ML VIAL IM PRN (12:05)
[2019-10-14] MEDS ORDERED: Midazolam HCl 2 mg/2 ml Vial ONE (12:16)
--- NOTE | 2019-10-14 14:21 | RAD ---
PORTABLE CHEST: History: Smart catheter placement. FINDINGS: A central line has been placed in the right jugular. The course of this line is slightly more lateral than typically expected. The tip of the line also points toward the midline. It could reside in the SVC, however, recommend confirmation with injection under fluoroscopy. The lungs are clear. Heart and mediastinum unremarkable. IMPRESSION: The central line via the right jugular has a slight lateral course with the tip crossing the midline at the mid mediastinum. This probably resides in the SVC, however, this course is atypical. Findings were relayed to Larissa, the patient's nurse and she will notify Dr. Olsen. This site could be injected under fluoroscopy if there is any questions clinically. POS: MONTY
[2019-10-14] MEDS: Enoxaparin Sodium 40 MG/0.4 ML SYRINGE SC SCH (20:13)
[2019-10-15] MEDS: HYDROcodone/Acetaminophen 7.5/325 mg Tablet PO PRN ×4 (00:31→18:14)
[2019-10-15] MEDS: Piperacillin/Tazobactam 3.375 GM in Sodium Chloride 0.9% 100 ML IVPB SCH ×4 (00:33→17:44)
[2019-10-15 01:26] LABS: Vancomycin, Trough 22.6 ug/mL
[2019-10-15] MEDS: Vancomycin HCl 1.25 GM in Sodium Chloride 0.9% 250 ML 250 ML IVPB SCH (01:33)
[2019-10-15] MEDS: Vancomycin 1 GM in Premix Bag 1 BAG IVPB SCH ×2 (02:56→14:50)
[2019-10-15] MEDS: 1/2 NS w/KCL 20 mEq 1,000 ML IV SCH ×2 (03:08→17:44)
[2019-10-15] MEDS: Levothyroxine Sodium 50 MCG TAB PO SCH (06:07)
--- NOTE | 2019-10-15 08:26 | PDOC.HOSPP ---
- Subjective Encounter Date: 10/14/19 Encounter Time: 13:00 Subjective: Patient seen and examined for med mngt. s/p smart catheter. No new complaints. No overnight events - Objective Vital Signs & Weight: Vital Signs (12 hours) Temp Pulse Resp BP Pulse Ox 10/15/19 07:47 98.0 F 65 18 103/66 95 Weight Admit Weight 216 lb 11.43 oz Weight 216 lb 11.43 oz I&O: 10/14/19 10/15/19 10/16/19 06:59 06:59 06:59 Intake Total 3300 3160 Output Total 3950 2900 Balance -650 260 Result Diagrams: 10/13/19 05:49 10/13/19 05:49 Additional Labs: Accuchecks 10/15/19 10/14/19 10/14/19 04:34 19:38 16:27 POC Glucose 107 134 H 114 H Hospitalist ROS - Review of Systems Respiratory: denies: cough, dry, shortness of breath, hemoptysis, SOB with excertion, pleuritic pain, sputum, wheezing, other Cardiovascular: denies: chest pain, palpitations, orthopnea, paroxysmal noc. dyspnea, edema, light headedness, other - Medication Medications: Active Medications Generic Name Dose Route Start Last Admin Trade Name Freq PRN Reason Stop Dose Admin Hydrocodone Bitart/Acetaminophen 1 tab 10/07/19 14:00 10/08/19 19:52 [place] 7.5/325 PO 1 tab Q6H PRN Administration Mild Pain (1-3) Hydrocodone Bitart/Acetaminophen 2 tab 10/07/19 14:00 10/15/19 06:19 [place]ane 7.5/325 PO 2 tab Q6H PRN Administration Moderate Pain (4-6) Enoxaparin Sodium 40 mg 10/11/19 21:00 10/14/19 20:13 Lovenox SC 40 mg 2100 ELY Administration Famotidine 20 mg 10/12/19 21:00 10/14/19 20:12 Pepcid PO 20 mg BID ELY Administration Dextrose/Water 1,000 mls @ 0 mls/hr 10/04/19 11:34 10/05/19 19:40 D5w IV 1,000 mls .Q0M PRN Administration Hypoglycemia As Directed Potassium Chloride/Sodium Chloride 1,000 mls @ 100 mls/hr 10/11/19 08:15 03:08 1/2 Ns W/Kcl 20 Meq IV 1,000 mls .Q10H ELY Administration Piperacillin Sod/Tazobactam 100 mls @ 200 mls/hr 10/11/19 12:00 10/15/19 06: 07 Sod 3.375 gm/ Sodium Chloride IVPB 100 mls Q6HR ELY Administration Vancomycin HCl 1 gm/ Device 200 mls @ 200 mls/hr 10/15/19 02:00 10/15/19 02: 56 IVPB 200 mls 0200,1400 ELY Administration Levothyroxine Sodium 50 mcg 10/12/19 06:00 10/15/19 06:07 Synthroid PO 50 mcg 0600 ELY Administration Ondansetron HCl 4 mg 10/10/19 10:10 10/11/19 12:36 Zofran IVP 4 mg Q6H PRN Administration Nausea/Vomiting Saccharomyces Boulardii 250 mg 10/13/19 09:00 10/14/19 08:04 Florastor PO Not Given DAILY ELY Sodium Chloride 10 ml 10/11/19 09:00 10/14/19 20:14 Flush - Normal Saline IVF 10 ml Q12HR ELY Administration Venlafaxine HCl 150 mg 10/12/19 09:00 10/14/19 08:04 Effexor Xr PO Not Given DAILY ELY - Exam General Appearance: NAD Neck: supple, no JVD Heart: RRR, no gallops Respiratory: no wheezes, no ronchi Gastrointestinal: non-tender, non-distended, normal bowel sounds Extremities: no cyanosis Hosp A/P - Plan DVT proph w/SCDs Enterocutaneous fistula HTN DM2 Left lower buttock ulcer stage 4 Obesity BMI 36.1 Hyponatremia/hypokalemia/Hypomagnesemia CKD 2 Hypothyroidism Chronic anemia prob due to nutritional def s/p Smart catheter placement 10/13 PLAN: Cont IV Atbx Diet advanced to GI soft Cont sliding scale Cont wound care Cont other meds as above
[2019-10-15] MEDS: Saccharomyces boulardii 250 MG CAP PO SCH (09:18)
[2019-10-15] MEDS: Famotidine 20 MG TAB PO SCH ×2 (09:18→21:12)
[2019-10-15] MEDS: Venlafaxine HCl XR 150 MG CAP PO SCH (09:18)
--- NOTE | 2019-10-15 10:36 | PDOC.GSPN ---
Surgery Progress Note: Subj - Subjective Patient reports: no new complaints Surgery Progress Note: Obj - Vital signs Vital signs: Vital Signs - Most Recent Temp Pulse Resp BP Pulse Ox 98.0 F 65 18 103/66 95 10/15/19 07:47 10/15/19 07:47 10/15/19 07:47 10/15/19 07:47 10/15/19 07:47 - Physical Exam General: no distress Cardiovascular: regular rate and rhythm Respiratory: clear to auscultation Abdomen: soft, non tender, nondistended Wound: wound vac (doesn't appear to be any stool in the vac or bag) Surgery Progress Note: Results - Labs Result Diagrams: 10/13/19 05:49 10/13/19 05:49 Lab results: Laboratory Results - last 24 hr 10/15/19 10/15/19 00:38 04:34 POC Glucose 107 Vancomycin Trough 22.6 Surgery Progress Note: A/P - Problem (1) Enterocutaneous fistula Current Visit: Yes Code(s): K63.2 - FISTULA OF INTESTINE Status: Acute - Plan Plan: Will look at wound during dressing change tomorrow. -TPN and NPO prolonged if stool in drainage again
--- NOTE | 2019-10-15 12:56 | PDOC.HOSPP ---
- Subjective Encounter Date: 10/15/19 Encounter Time: 10:00 Subjective: Patient seen and examined for medical mngt. No N/V. Abd pain controlled. No new complaints. No overnight events - Objective Vital Signs & Weight: Vital Signs (12 hours) Temp Pulse Resp BP Pulse Ox 10/15/19 07:47 98.0 F 65 18 103/66 95 Weight Admit Weight 216 lb 11.43 oz Weight 216 lb 11.43 oz I&O: 10/14/19 10/15/19 10/16/19 06:59 06:59 06:59 Intake Total 3300 3160 Output Total 3950 2900 Balance -650 260 Result Diagrams: 10/13/19 05:49 10/13/19 05:49 Additional Labs: Accuchecks 10/15/19 10/15/19 10/14/19 11:19 04:34 19:38 POC Glucose 110 107 134 H 10/14/19 16:27 POC Glucose 114 H Hospitalist ROS - Review of Systems Respiratory: denies: cough, dry, shortness of breath, hemoptysis, SOB with excertion, pleuritic pain, sputum, wheezing, other Cardiovascular: denies: chest pain, palpitations, orthopnea, paroxysmal noc. dyspnea, edema, light headedness, other - Medication Medications: Active Medications Generic Name Dose Route Start Last Admin Trade Name Freq PRN Reason Stop Dose Admin Hydrocodone Bitart/Acetaminophen 1 tab 10/07/19 14:00 10/08/19 19:52 [place] 7.5/325 PO 1 tab Q6H PRN Administration Mild Pain (1-3) Hydrocodone Bitart/Acetaminophen 2 tab 10/07/19 14:00 10/15/19 11:56 [place] 7.5/325 PO 2 tab Q6H PRN Administration Moderate Pain (4-6) Enoxaparin Sodium 40 mg 10/11/19 21:00 10/14/19 20:13 Lovenox SC 40 mg 2100 ELY Administration Famotidine 20 mg 10/12/19 21:00 10/15/19 09:18 Pepcid PO 20 mg BID ELY Administration Dextrose/Water 1,000 mls @ 0 mls/hr 10/04/19 11:34 10/05/19 19:40 D5w IV 1,000 mls .Q0M PRN Administration Hypoglycemia As Directed Potassium Chloride/Sodium Chloride 1,000 mls @ 100 mls/hr 10/11/19 08:15 03:08 1/2 Ns W/Kcl 20 Meq IV 1,000 mls .Q10H ELY Administration Piperacillin Sod/Tazobactam 100 mls @ 200 mls/hr 10/11/19 12:00 10/15/19 12: 01 Sod 3.375 gm/ Sodium Chloride IVPB 100 mls Q6HR ELY Administration Vancomycin HCl 1 gm/ Device 200 mls @ 200 mls/hr 10/15/19 02:00 10/15/19 02: 56 IVPB 200 mls 0200,1400 ELY Administration Levothyroxine Sodium 50 mcg 10/12/19 06:00 10/15/19 06:07 Synthroid PO 50 mcg 0600 ELY Administration Ondansetron HCl 4 mg 10/10/19 10:10 10/11/19 12:36 Zofran IVP 4 mg Q6H PRN Administration Nausea/Vomiting Saccharomyces Boulardii 250 mg 10/13/19 09:00 10/15/19 09:18 Florastor PO 250 mg DAILY ELY Administration Sodium Chloride 10 ml 10/11/19 09:00 10/15/19 09:19 Flush - Normal Saline IVF 10 ml Q12HR ELY Administration Venlafaxine HCl 150 mg 10/12/19 09:00 10/15/19 09:18 Effexor Xr PO 150 mg DAILY ELY Administration - Exam General Appearance: NAD Neck: supple, no JVD Heart: RRR, no gallops Respiratory: no wheezes, no rales Gastrointestinal: soft, normal bowel sounds Extremities: no cyanosis Neurological: no new deficit Hosp A/P - Plan DVT proph w/lovenox, DVT proph w/SCDs Enterocutaneous fistula HTN DM2 Left lower buttock ulcer stage 4 Obesity BMI 36.1 Hyponatremia/hypokalemia/Hypomagnesemia CKD 2 Hypothyroidism Chronic anemia prob due to nutritional def s/p Smart catheter placement 10/13 PLAN: Cont IV Vanc/Zosyn Monitor Vancomycin level on GI soft diet Cont sliding scale Q6h Cont wound care Cont other meds as above AM labs
[2019-10-15] MEDS: Enoxaparin Sodium 40 MG/0.4 ML SYRINGE SC SCH (21:12)
--- NOTE | 2019-10-15 21:44 | OP ---
DATE OF PROCEDURE: 10/14/2019 PREOPERATIVE DIAGNOSES: Enterocutaneous fistula, chronic malnutrition, need for long-term IV antibiotics. POSTOPERATIVE DIAGNOSES: Enterocutaneous fistula, chronic malnutrition, need for long-term IV antibiotics. PROCEDURE: Tunneled central line. ANESTHESIA: General. ESTIMATED BLOOD LOSS: Minimal. COMPLICATIONS: None. SPECIMEN: None. TECHNIQUE: The patient was taken to the operating room and laid supine on the operating table. After general anesthetic was obtained, bilateral neck and chest were prepped and draped in a sterile fashion. Local anesthetic infiltrated over the right internal jugular vein. Internal jugular vein cannulated using a 22-gauge spinal needle followed by a Seldinger needle. Wire was passed into the superior vena cava under fluoro guidance. A small tyrone was made below the right clavicle and the Smart tubing was tunneled from the inferior to superior incision. The tubing was laid on the chest and cut to fit. The introducer sheath was placed over the wire into the superior vena cava under fluoro guidance. The dilator and wire were removed. The end of the catheter sewed into the sheath as the sheath was peeled away. The tip of the catheter is at the atriocaval junction. The cuff for the Smart lies just above the lower incision in the subcutaneous tunnel. The neck incision was closed using 4-0 Monocryl. The exit site was closed using a nylon. An antimicrobial Tegaderm was used to dress the site. The Smart flushes and draws blood without difficulties, flushed with heparin solution. The patient was sent to Recovery in stable condition. All sponge counts, needle counts, and lap counts were correct. Job ID: [id number]
[2019-10-16] MEDS: HYDROcodone/Acetaminophen 7.5/325 mg Tablet PO PRN ×4 (00:20→18:34)
[2019-10-16] MEDS: Piperacillin/Tazobactam 3.375 GM in Sodium Chloride 0.9% 100 ML IVPB SCH ×5 (00:21→23:08)
[2019-10-16] MEDS: Vancomycin 1 GM in Premix Bag 1 BAG IVPB SCH (02:26)
[2019-10-16] MEDS: 1/2 NS w/KCL 20 mEq 1,000 ML IV SCH ×3 (04:57→23:10)
[2019-10-16] MEDS: Levothyroxine Sodium 50 MCG TAB PO SCH (05:13)
[2019-10-16 05:49] LABS: #Basophils 0.1 thou/uL (0.0-0.2); #Eosinphils 0.3 thou/uL (0.0-0.7); #Lymphocytes 1.3 thou/uL (1.20-3.40); #Monocytes 0.5 thou/uL (0.11-0.59); #Neutrophils 3.3 thou/uL (1.40-6.50); %Basophils 1.1 % (0.0-1.0); %Eosinophils 5.2 % (0.0-10.0); %Monocytes 9.4 % (0.0-10.0); %Neutrophils 60.3 % (42.0-75.0); Hemoglobin 11.9 g/dL (14.0-18.0); Mean Corpuscular HGB CONC 31.5 g/dL (32.0-36.0); Mean Corpuscular Hemoglobin 26.7 pg (27.0-31.0); Mean Corpuscular Volume 84.7 fL (78.0-98.0); Platelet Count 332 thou/uL (130-400); RBC Distribution Width 15.5 % (11.5-14.5); Red Blood Cell (RBC) Count 4.45 mill/uL (4.70-6.10); White Blood Cell (WBC) Count 5.5 thou/uL (4.8-10.8)
[2019-10-16 06:18] LABS: ALT (SGPT) 16 U/L (8-55); AST (SGOT) 23 U/L (5-34); Albumin 3.5 g/dL (3.5-5.0); Alkaline Phosphatase 83 U/L (40-110); Anion Gap 11 mmol/L (10-20); BUN (Urea Nitrogen) 10 mg/dL (8.9-20.6); Bilirubin, Total 0.2 mg/dL (0.2-1.2); Calc. Creatinine Clearance 109 mL/min (70-130); Calcium 8.9 mg/dL (7.8-10.44); Carbon Dioxide 25 mmol/L (22-29); Chloride 106 mmol/L (98-107); Estimated GFR-MDRD 68; Glucose 84 mg/dL (70-105); Magnesium 1.8 mg/dL (1.6-2.6); Phosphorus 3.6 mg/dL (2.3-4.7); Potassium 4.4 mmol/L (3.5-5.1); Protein, Total 6.5 g/dL (6.0-8.3); Sodium 138 mmol/L (136-145)
[2019-10-16] MEDS: Venlafaxine HCl XR 150 MG CAP PO SCH (08:12)
[2019-10-16] MEDS: Famotidine 20 MG TAB PO SCH ×2 (08:12→20:43)
[2019-10-16] MEDS: Saccharomyces boulardii 250 MG CAP PO SCH (08:12)
[2019-10-16 13:35] LABS: Vancomycin, Trough 22.4 ug/mL
--- NOTE | 2019-10-16 14:17 | PRG ---
DATE OF SERVICE: 10/16/2019 SUBJECTIVE: Mr. Boykin has no complaints. He is tolerating diet. He has no more abdominal pain. No bloating. No nausea. He is tolerating a GI soft diet. OBJECTIVE: VITAL SIGNS: He is afebrile. His vital signs are stable. ABDOMEN: His abdominal wound VAC is intact. It was changed today. There was no stool or foul smell. ASSESSMENT: Enterocutaneous fistula closed using close suction drainage. He is on antibiotics for Pseudomonas on his cultures of the wound. PLAN: I recommend continue wound VAC at this time. It does not appear he is going to need TPN, however, would like to keep him here in the hospital with the wound VAC until the wound is almost completely healed given his lack of potential wound care after he leaves here. Job ID: [id number]
[2019-10-16] MEDS: Vancomycin HCl 750 MG in Sodium Chloride 0.9% 250 ML 250 ML IVPB SCH (15:41)
[2019-10-16] MEDS: Enoxaparin Sodium 40 MG/0.4 ML SYRINGE SC SCH (20:43)
[2019-10-17] MEDS: HYDROcodone/Acetaminophen 7.5/325 mg Tablet PO PRN ×4 (00:34→19:28)
[2019-10-17] MEDS: Vancomycin HCl 750 MG in Sodium Chloride 0.9% 250 ML 250 ML IVPB SCH ×2 (02:30→14:48)
[2019-10-17] MEDS: Piperacillin/Tazobactam 3.375 GM in Sodium Chloride 0.9% 100 ML IVPB SCH ×4 (05:50→23:28)
[2019-10-17] MEDS: Levothyroxine Sodium 50 MCG TAB PO SCH (05:50)
[2019-10-17] MEDS: 1/2 NS w/KCL 20 mEq 1,000 ML IV SCH ×2 (05:52→20:46)
--- NOTE | 2019-10-17 08:18 | PDOC.HOSPP ---
- Subjective Encounter Date: 10/16/19 Encounter Time: 13:00 Subjective: Patient seen and examined for med mngt. Tolerating PO. No nausea. No new complaints. No overnight events - Objective Vital Signs & Weight: Vital Signs (12 hours) Temp Pulse Resp BP Pulse Ox 10/17/19 08:00 97.8 F 67 18 108/71 96 Weight Admit Weight 216 lb 11.43 oz Weight 216 lb 11.43 oz I&O: 10/16/19 10/17/19 10/18/19 06:59 06:59 06:59 Intake Total 1900 Output Total 0135 525 Balance -5095 1375 Result Diagrams: 10/16/19 05:25 10/16/19 05:25 Additional Labs: Accuchecks 10/17/19 10/16/19 10/16/19 04:56 20:12 16:56 POC Glucose 103 158 H 111 H 10/16/19 11:41 POC Glucose 96 Hospitalist ROS - Review of Systems Respiratory: denies: cough, dry, shortness of breath, hemoptysis, SOB with excertion, pleuritic pain, sputum, wheezing, other Cardiovascular: denies: chest pain, palpitations, orthopnea, paroxysmal noc. dyspnea, edema, light headedness, other - Medication Medications: Active Medications Generic Name Dose Route Start Last Admin Trade Name Freq PRN Reason Stop Dose Admin Hydrocodone Bitart/Acetaminophen 1 tab 10/07/19 14:00 10/08/19 19:52 [place] 7.5/325 PO 1 tab Q6H PRN Administration Mild Pain (1-3) Hydrocodone Bitart/Acetaminophen 2 tab 10/07/19 14:00 10/17/19 06:35 [place] 7.5/325 PO 2 tab Q6H PRN Administration Moderate Pain (4-6) Enoxaparin Sodium 40 mg 10/11/19 21:00 10/16/19 20:43 Lovenox SC 40 mg 2100 ELY Administration Famotidine 20 mg 10/12/19 21:00 10/16/19 20:43 Pepcid PO 20 mg BID ELY Administration Dextrose/Water 1,000 mls @ 0 mls/hr 10/04/19 11:34 10/05/19 19:40 D5w IV 1,000 mls .Q0M PRN Administration Hypoglycemia As Directed Potassium Chloride/Sodium Chloride 1,000 mls @ 100 mls/hr 10/11/19 08:15 05:52 1/2 Ns W/Kcl 20 Meq IV 1,000 mls .Q10H ELY Administration Piperacillin Sod/Tazobactam 100 mls @ 200 mls/hr 10/11/19 12:00 10/17/19 05: 50 Sod 3.375 gm/ Sodium Chloride IVPB 100 mls Q6HR EYL Administration Vancomycin HCl 750 mg/ Sodium 250 mls @ 250 mls/hr 10/16/19 14:00 10/17/19 02 :30 Chloride IVPB 250 mls 0200,1400 ELY Administration Levothyroxine Sodium 50 mcg 10/12/19 06:00 10/17/19 05:50 Synthroid PO 50 mcg 0600 ELY Administration Ondansetron HCl 4 mg 10/10/19 10:10 10/11/19 12:36 Zofran IVP 4 mg Q6H PRN Administration Nausea/Vomiting Saccharomyces Boulardii 250 mg 10/13/19 09:00 10/16/19 08:12 Florastor PO 250 mg DAILY ELY Administration Sodium Chloride 10 ml 10/11/19 09:00 10/16/19 20:44 Flush - Normal Saline IVF Not Given Q12HR ELY Venlafaxine HCl 150 mg 10/12/19 09:00 10/16/19 08:12 Effexor Xr PO 150 mg DAILY ELY Administration - Exam General Appearance: NAD Neck: supple, no JVD Heart: RRR, no gallops Respiratory: CTAB, no rales Gastrointestinal: soft, non-tender, normal bowel sounds Extremities: no cyanosis Psychiatric: normal affect, A&O x 3 Hosp A/P - Plan DVT proph w/SCDs Enterocutaneous fistula HTN DM2 Left lower buttock ulcer stage 4 Obesity BMI 36.1 Hyponatremia/hypokalemia/Hypomagnesemia CKD 2 Hypothyroidism Chronic anemia prob due to nutritional def s/p Smart catheter placement 10/13 PLAN: Cont IV Zosyn/Vanc Monitor Vanc level Cont GI soft diet Cont sliding scale Cont wound care Cont supportive care
[2019-10-17] MEDS: Saccharomyces boulardii 250 MG CAP PO SCH (09:09)
[2019-10-17] MEDS: Venlafaxine HCl XR 150 MG CAP PO SCH (09:09)
[2019-10-17] MEDS: Famotidine 20 MG TAB PO SCH ×2 (09:09→20:45)
--- NOTE | 2019-10-17 12:23 | PDOC.HOSPP ---
- Subjective Encounter Date: 10/17/19 Encounter Time: 11:00 Subjective: Patient seen and examined for med mngt. No N/V. Tolerating PO. No new complaints. No overnight events - Objective Vital Signs & Weight: Vital Signs (12 hours) Temp Pulse Resp BP Pulse Ox 10/17/19 08:00 97.8 F 67 18 108/71 96 Weight Admit Weight 216 lb 11.43 oz Weight 216 lb 11.43 oz I&O: 10/16/19 10/17/19 10/18/19 06:59 06:59 06:59 Intake Total 1900 Output Total 3687 525 875 Balance -0525 1375 -385 Result Diagrams: 10/16/19 05:25 10/16/19 05:25 Additional Labs: Accuchecks 10/17/19 10/17/19 10/16/19 11:10 04:56 20:12 POC Glucose 102 103 158 H 10/16/19 10/16/19 16:56 11:41 POC Glucose 111 H 96 Hospitalist ROS - Review of Systems Constitutional: denies: fever, chills, sweats, weakness, malaise, other Respiratory: denies: cough, dry, shortness of breath, hemoptysis, SOB with excertion, pleuritic pain, sputum, wheezing, other Cardiovascular: denies: chest pain, palpitations, orthopnea, paroxysmal noc. dyspnea, edema, light headedness, other - Medication Medications: Active Medications Generic Name Dose Route Start Last Admin Trade Name Freq PRN Reason Stop Dose Admin Hydrocodone Bitart/Acetaminophen 1 tab 10/07/19 14:00 10/08/19 19:52 [place] 7.5/325 PO 1 tab Q6H PRN Administration Mild Pain (1-3) Hydrocodone Bitart/Acetaminophen 2 tab 10/07/19 14:00 10/17/19 06:35 [place] 7.5/325 PO 2 tab Q6H PRN Administration Moderate Pain (4-6) Enoxaparin Sodium 40 mg 10/11/19 21:00 10/16/19 20:43 Lovenox SC 40 mg 2100 ELY Administration Famotidine 20 mg 10/12/19 21:00 10/17/19 09:09 Pepcid PO 20 mg BID ELY Administration Dextrose/Water 1,000 mls @ 0 mls/hr 10/04/19 11:34 10/05/19 19:40 D5w IV 1,000 mls .Q0M PRN Administration Hypoglycemia As Directed Potassium Chloride/Sodium Chloride 1,000 mls @ 100 mls/hr 10/11/19 08:15 05:52 1/2 Ns W/Kcl 20 Meq IV 1,000 mls .Q10H ELY Administration Piperacillin Sod/Tazobactam 100 mls @ 200 mls/hr 10/11/19 12:00 10/17/19 05: 50 Sod 3.375 gm/ Sodium Chloride IVPB 100 mls Q6HR ELY Administration Vancomycin HCl 750 mg/ Sodium 250 mls @ 250 mls/hr 10/16/19 14:00 10/17/19 02 :30 Chloride IVPB 250 mls 0200,1400 ELY Administration Levothyroxine Sodium 50 mcg 10/12/19 06:00 10/17/19 05:50 Synthroid PO 50 mcg 0600 ELY Administration Ondansetron HCl 4 mg 10/10/19 10:10 10/11/19 12:36 Zofran IVP 4 mg Q6H PRN Administration Nausea/Vomiting Saccharomyces Boulardii 250 mg 10/13/19 09:00 10/17/19 09:09 Florastor PO 250 mg DAILY ELY Administration Sodium Chloride 10 ml 10/11/19 09:00 10/17/19 09:23 Flush - Normal Saline IVF Not Given Q12HR ELY Venlafaxine HCl 150 mg 10/12/19 09:00 10/17/19 09:09 Effexor Xr PO 150 mg DAILY ELY Administration - Exam General Appearance: NAD Heart: RRR, no gallops Respiratory: no wheezes, no ronchi Gastrointestinal: soft, no guarding, no rigidity Extremities: no cyanosis Neurological: no new deficit Hosp A/P - Plan DVT proph w/SCDs Enterocutaneous fistula - on Vanc/Zosyn HTN DM2 Left lower buttock ulcer stage 4 Obesity BMI 36.1 Hyponatremia/hypokalemia/Hypomagnesemia CKD 2 Hypothyroidism Anxiety Chronic anemia prob due to nutritional def s/p Smart catheter placement 10/13 PLAN: Cont IV Zosyn/Vanc with Vanc level monitoring Cont Levothyroxine, sliding scale and other meds as above Cont GI soft diet Cont wound care
[2019-10-17] MEDS ORDERED: HYDROcodone/Acetaminophen 7.5/325 mg Tablet PO PRN (18:30)
[2019-10-17] MEDS: Enoxaparin Sodium 40 MG/0.4 ML SYRINGE SC SCH (20:46)
[2019-10-18] MEDS: Vancomycin HCl 750 MG in Sodium Chloride 0.9% 250 ML 250 ML IVPB SCH ×2 (00:40→14:43)
[2019-10-18] MEDS: HYDROcodone/Acetaminophen 7.5/325 mg Tablet PO PRN ×4 (01:25→20:23)
[2019-10-18] MEDS: Piperacillin/Tazobactam 3.375 GM in Sodium Chloride 0.9% 100 ML IVPB SCH ×4 (06:27→23:03)
[2019-10-18] MEDS: Levothyroxine Sodium 50 MCG TAB PO SCH (06:27)
[2019-10-18] MEDS: Famotidine 20 MG TAB PO SCH ×2 (08:25→20:22)
[2019-10-18] MEDS: Venlafaxine HCl XR 150 MG CAP PO SCH (08:26)
[2019-10-18] MEDS: Saccharomyces boulardii 250 MG CAP PO SCH (08:26)
--- NOTE | 2019-10-18 11:16 | PRG ---
DATE OF SERVICE: 10/18/2019 SUBJECTIVE: Mr. Boykin has no complaints today. He is tolerating regular diet. He notes persistent bloating, which is normal for him. He has questions about definitive hernia repair. OBJECTIVE: VITAL SIGNS: He is afebrile. His vital signs are stable. ABDOMEN: Soft. 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 The wound VAC in the left lower quadrant is intact. No significant surrounding erythema, bulla or crepitance Final culture showed Pseudomonas and MRSA as well as Proteus sensitive to Zosyn, resistant to Levaquin. ASSESSMENT: 1. History of parastomal hernia and other incisional hernias with loss of domain but nonobstructing with normal small bowel follow through. 2. History of infected mesh in left lower quadrant from previous hernia repair in [place] with enterocutaneous fistula, appears to be low output. PLAN: Continue IV antibiotics, allowing for him to eat as long as his output from the fistula is not significant. Continue wound VAC through the weekend. I suspect next week we can transition him to a different type of wound care where maybe he can go to a group home [facility] or infirmary type situation. Job ID: [id number]
[2019-10-18] MEDS: 1/2 NS w/KCL 20 mEq 1,000 ML IV SCH ×3 (11:58→23:03)
[2019-10-18 13:29] LABS: Vancomycin, Trough 15.2 ug/mL
--- NOTE | 2019-10-18 19:00 | PDOC.HOSPP ---
- Subjective Encounter Date: 10/18/19 Encounter Time: 13:30 Subjective: Patient seen and examined for med mngt. No new abd pain/fever. No new complaints. No overnight events - Objective Vital Signs & Weight: Vital Signs (12 hours) Temp Pulse Resp BP Pulse Ox 10/18/19 08:00 95 10/18/19 07:23 97.6 F 59 L 16 106/69 95 Weight Admit Weight 216 lb 11.43 oz Weight 216 lb 11.43 oz I&O: 10/17/19 10/18/19 10/19/19 06:59 06:59 06:59 Intake Total 1900 960 480 Output Total 525 3000 Balance 1375 -2040 480 Result Diagrams: 10/16/19 05:25 10/16/19 05:25 Additional Labs: Accuchecks 10/18/19 10/18/19 10/18/19 16:15 11:20 05:17 POC Glucose 125 H 115 H 82 10/17/19 20:11 POC Glucose 131 H Hospitalist ROS - Review of Systems Respiratory: denies: cough, dry, shortness of breath, hemoptysis, SOB with excertion, pleuritic pain, sputum, wheezing, other Cardiovascular: denies: chest pain, palpitations, orthopnea, paroxysmal noc. dyspnea, edema, light headedness, other - Medication Medications: Active Medications Generic Name Dose Route Start Last Admin Trade Name Freq PRN Reason Stop Dose Admin Hydrocodone Bitart/Acetaminophen 2 tab 10/17/19 18:30 10/18/19 14:19 [place] 7.5/325 PO 2 tab Q6H PRN Administration MODERATE Pain 4-6 Enoxaparin Sodium 40 mg 10/11/19 21:00 10/17/19 20:46 Lovenox SC 40 mg 2100 ELY Administration Famotidine 20 mg 10/12/19 21:00 10/18/19 08:25 Pepcid PO 20 mg BID ELY Administration Dextrose/Water 1,000 mls @ 0 mls/hr 10/04/19 11:34 10/05/19 19:40 D5w IV 1,000 mls .Q0M PRN Administration Hypoglycemia As Directed Potassium Chloride/Sodium Chloride 1,000 mls @ 100 mls/hr 10/11/19 08:15 11:58 1/2 Ns W/Kcl 20 Meq IV 1,000 mls .Q10H ELY Administration Piperacillin Sod/Tazobactam 100 mls @ 200 mls/hr 10/11/19 12:00 10/18/19 16: 56 Sod 3.375 gm/ Sodium Chloride IVPB 100 mls Q6HR ELY Administration Vancomycin HCl 750 mg/ Sodium 250 mls @ 250 mls/hr 10/16/19 14:00 10/18/19 14 :43 Chloride IVPB 250 mls 0200,1400 ELY Administration Levothyroxine Sodium 50 mcg 10/12/19 06:00 10/18/19 06:27 Synthroid PO 50 mcg 0600 ELY Administration Ondansetron HCl 4 mg 10/10/19 10:10 10/11/19 12:36 Zofran IVP 4 mg Q6H PRN Administration Nausea/Vomiting Saccharomyces Boulardii 250 mg 10/13/19 09:00 10/18/19 08:26 Florastor PO 250 mg DAILY ELY Administration Sodium Chloride 10 ml 10/11/19 09:00 10/18/19 08:34 Flush - Normal Saline IVF Not Given Q12HR ELY Venlafaxine HCl 150 mg 10/12/19 09:00 10/18/19 08:26 Effexor Xr PO 150 mg DAILY ELY Administration - Exam General Appearance: NAD Heart: RRR, no gallops Respiratory: no wheezes, no ronchi Gastrointestinal: soft, no guarding, no rigidity Extremities: no cyanosis, no clubbing Hosp A/P - Plan DVT proph w/SCDs Enterocutaneous fistula HTN DM2 Left lower buttock ulcer stage 4 - POA Obesity BMI 36.1 Hyponatremia/hypokalemia/Hypomagnesemia CKD 2 Hypothyroidism Anxiety Chronic anemia prob due to nutritional def s/p Smart catheter placement 10/13 PLAN: Cont IV Atbx (Zosyn/Vanc) Monitor Vanc level Reduce IVF Cont Levothyroxine Cont sliding scale and other meds as above on GI soft diet Cont wound care
[2019-10-18] MEDS: Enoxaparin Sodium 40 MG/0.4 ML SYRINGE SC SCH (20:23)
[2019-10-19] MEDS: Vancomycin HCl 750 MG in Sodium Chloride 0.9% 250 ML 250 ML IVPB SCH ×2 (02:23→13:08)
--- NOTE | 2019-10-19 02:30 | PRG ---
DATE OF SERVICE: 10/18/2019 SUBJECTIVE: The patient was seen this evening during rounds. He was lying in bed comfortably and asleep with no signs of acute distress. Nursing reported no acute events. OBJECTIVE: VITAL SIGNS: Temperature 98.5, pulse 81, respirations 20, oxygen saturation 95% on room air, and blood pressure 127/83. GENERAL: Middle-aged male, lying in bed, asleep, with no signs of acute distress. PULMONARY: Equal chest rise and fall. No signs of acute respiratory distress. ASSESSMENT: 1. History of parastomal hernia with other incisional hernias with loss of domain but nonobstructing with normal small-bowel follow-through. 2. History of infected mesh in the left lower quadrant from previous hernia repair in [place] with enterocutaneous fistula, appears to be low output. PLAN: Continue antibiotics. Continue VAC through the weekend. Continue to monitor for Dr. Madrigal over the weekend. Job ID: [id number]
[2019-10-19] MEDS: HYDROcodone/Acetaminophen 7.5/325 mg Tablet PO PRN ×4 (02:48→20:34)
[2019-10-19] MEDS: Piperacillin/Tazobactam 3.375 GM in Sodium Chloride 0.9% 100 ML IVPB SCH ×4 (05:46→23:20)
[2019-10-19] MEDS: Levothyroxine Sodium 50 MCG TAB PO SCH (05:52)
[2019-10-19] MEDS: Famotidine 20 MG TAB PO SCH ×2 (08:15→20:33)
[2019-10-19] MEDS: Venlafaxine HCl XR 150 MG CAP PO SCH (08:16)
[2019-10-19] MEDS: Saccharomyces boulardii 250 MG CAP PO SCH (08:16)
--- NOTE | 2019-10-19 15:25 | PRG ---
DATE OF SERVICE: 10/19/2019 SUBJECTIVE: Mr. Boykin is awake and alert today. He reports adequate pain control. He is tolerating diet and having normal urinary function. He has adequate stool output per ostomy. The left lower quadrant abdominal wound is noted with wound VAC in place. No large volume output. Clearly, the patient has no peritoneal signs on examination. OBJECTIVE: VITAL SIGNS: His vital signs has remained stable with a blood pressure 136/83, pulse 75, respiratory rate is 20, temperature 97.7 degrees Fahrenheit, and oxygen saturation 97% on room air. PLAN: We will continue with wound VAC dressing through the weekend. There is no acute surgical indication for this patient at this time. Job ID: [id number]
[2019-10-19] MEDS: 1/2 NS w/KCL 20 mEq 1,000 ML IV SCH (20:33)
[2019-10-19] MEDS: Enoxaparin Sodium 40 MG/0.4 ML SYRINGE SC SCH (20:33)
[2019-10-20] MEDS: Vancomycin HCl 750 MG in Sodium Chloride 0.9% 250 ML 250 ML IVPB SCH ×2 (01:44→13:56)
[2019-10-20] MEDS: Levothyroxine Sodium 50 MCG TAB PO SCH (02:27)
[2019-10-20] MEDS: HYDROcodone/Acetaminophen 7.5/325 mg Tablet PO PRN ×4 (02:28→21:40)
[2019-10-20] MEDS: Piperacillin/Tazobactam 3.375 GM in Sodium Chloride 0.9% 100 ML IVPB SCH ×4 (05:14→23:45)
--- NOTE | 2019-10-20 06:09 | PRG ---
DATE OF SERVICE: 10/19/2019 SUBJECTIVE: The patient was seen this evening during rounds. He was lying in bed comfortably and asleep with no signs of acute distress. Nursing reported no acute events. OBJECTIVE: VITAL SIGNS: Temperature 97.8, pulse 76, respirations 16, oxygen saturation 96% on room air, blood pressure 90/56. ASSESSMENT: Status post irrigation of left lower quadrant wound due to parastomal and incisional hernia, which are chronic. The patient also has an enterocutaneous fistula on the left abdomen. PLAN: Continue VAC. Continue IV antibiotics. Continue diet. Continue mobilization. Job ID: [id number]
--- NOTE | 2019-10-20 07:39 | PDOC.HOSPP ---
- Subjective Encounter Date: 10/19/19 Encounter Time: 10:00 Subjective: Patient seen and examined for med mngt. No new complaints. No overnight events - Objective Vital Signs & Weight: Weight Admit Weight 216 lb 11.43 oz Weight 216 lb 11.43 oz I&O: 10/19/19 10/20/19 10/21/19 06:59 06:59 06:59 Intake Total 480 480 Output Total 1200 1300 Balance -720 -820 Result Diagrams: 10/16/19 05:25 10/16/19 05:25 Additional Labs: Accuchecks 10/20/19 10/19/19 10/19/19 04:36 19:36 16:23 POC Glucose 76 148 H 104 10/19/19 11:07 POC Glucose 110 Hospitalist ROS - Review of Systems Respiratory: denies: cough, dry, shortness of breath, hemoptysis, SOB with excertion, pleuritic pain, sputum, wheezing, other Cardiovascular: denies: chest pain, palpitations, orthopnea, paroxysmal noc. dyspnea, edema, light headedness, other - Medication Medications: Active Medications Generic Name Dose Route Start Last Admin Trade Name Freq PRN Reason Stop Dose Admin Hydrocodone Bitart/Acetaminophen 2 tab 10/17/19 18:30 10/20/19 02:28 [place] 7.5/325 PO 2 tab Q6H PRN Administration MODERATE Pain 4-6 Enoxaparin Sodium 40 mg 10/11/19 21:00 10/19/19 20:33 Lovenox SC 40 mg 2100 ELY Administration Famotidine 20 mg 10/12/19 21:00 10/19/19 20:33 Pepcid PO 20 mg BID ELY Administration Dextrose/Water 1,000 mls @ 0 mls/hr 10/04/19 11:34 10/05/19 19:40 D5w IV 1,000 mls .Q0M PRN Administration Hypoglycemia As Directed Piperacillin Sod/Tazobactam 100 mls @ 200 mls/hr 10/11/19 12:00 10/20/19 05: 14 Sod 3.375 gm/ Sodium Chloride IVPB 100 mls Q6HR ELY Administration Vancomycin HCl 750 mg/ Sodium 250 mls @ 250 mls/hr 10/16/19 14:00 10/20/19 01 :44 Chloride IVPB 250 mls 0200,1400 ELY Administration Potassium Chloride/Sodium Chloride 1,000 mls @ 75 mls/hr 10/18/19 19:03 10/18 20:33 1/2 Ns W/Kcl 20 Meq IV 1,000 mls .[id number] ELY Administration Levothyroxine Sodium 50 mcg 10/12/19 06:00 10/20/19 02:27 Synthroid PO 50 mcg 0600 ELY Administration Ondansetron HCl 4 mg 10/10/19 10:10 10/11/19 12:36 Zofran IVP 4 mg Q6H PRN Administration Nausea/Vomiting Saccharomyces Boulardii 250 mg 10/13/19 09:00 10/19/19 08:16 Florastor PO 250 mg DAILY ELY Administration Sodium Chloride 10 ml 10/11/19 09:00 10/19/19 20:32 Flush - Normal Saline IVF Not Given Q12HR ELY Venlafaxine HCl 150 mg 10/12/19 09:00 10/19/19 08:16 Effexor Xr PO 150 mg DAILY ELY Administration - Exam General Appearance: NAD Heart: RRR, no gallops Respiratory: no wheezes, no rales Gastrointestinal: soft, no guarding, no rigidity Extremities: no cyanosis Hosp A/P - Plan DVT proph w/lovenox Enterocutaneous fistula HTN DM2 Left lower buttock ulcer stage 4 Obesity BMI 36.1 Hyponatremia/hypokalemia/Hypomagnesemia CKD 2 Hypothyroidism Anxiety Chronic anemia prob due to nutritional def s/p Smart catheter placement 10/13 PLAN: Cont IV Vanc/Zosyn Monitor Vanc level DC IVF if tolerating PO well Cont sliding scale Cont GI soft diet Cont other meds as above Cont wound care
[2019-10-20] MEDS: Venlafaxine HCl XR 150 MG CAP PO SCH (08:12)
[2019-10-20] MEDS: Saccharomyces boulardii 250 MG CAP PO SCH (08:12)
[2019-10-20] MEDS: Famotidine 20 MG TAB PO SCH ×2 (08:12→20:15)
[2019-10-20] MEDS: 1/2 NS w/KCL 20 mEq 1,000 ML IV SCH (11:21)
--- NOTE | 2019-10-20 12:54 | PDOC.HOSPP ---
- Subjective Encounter Date: 10/20/19 Subjective: Patient denies any new complaints today. He is tolerating his diet. - Objective Vital Signs & Weight: Vital Signs (12 hours) Temp Pulse Resp BP Pulse Ox 10/20/19 07:41 97.8 F 63 20 122/78 94 L Weight Admit Weight 216 lb 11.43 oz Weight 216 lb 11.43 oz I&O: 10/19/19 10/20/19 10/21/19 06:59 06:59 06:59 Intake Total 480 480 Output Total 1200 1300 Balance -720 -820 Result Diagrams: 10/16/19 05:25 10/16/19 05:25 Additional Labs: Accuchecks 10/20/19 10/20/19 10/19/19 11:15 04:36 19:36 POC Glucose 105 76 148 H 10/19/19 16:23 POC Glucose 104 Hospitalist ROS - Medication Medications: Active Medications Generic Name Dose Route Start Last Admin Trade Name Freq PRN Reason Stop Dose Admin Hydrocodone Bitart/Acetaminophen 2 tab 10/17/19 18:30 10/20/19 08:12 [place] 7.5/325 PO 2 tab Q6H PRN Administration MODERATE Pain 4-6 Enoxaparin Sodium 40 mg 10/11/19 21:00 10/19/19 20:33 Lovenox SC 40 mg 2100 ELY Administration Famotidine 20 mg 10/12/19 21:00 10/20/19 08:12 Pepcid PO 20 mg BID ELY Administration Dextrose/Water 1,000 mls @ 0 mls/hr 10/04/19 11:34 10/05/19 19:40 D5w IV 1,000 mls .Q0M PRN Administration Hypoglycemia As Directed Piperacillin Sod/Tazobactam 100 mls @ 200 mls/hr 10/11/19 12:00 10/20/19 11: 21 [place] 3.375 gm/ Sodium Chloride IVPB 100 mls Q6HR ELY Administration Vancomycin HCl 750 mg/ Sodium 250 mls @ 250 mls/hr 10/16/19 14:00 10/20/19 01 :44 Chloride IVPB 250 mls 0200,1400 ELY Administration Potassium Chloride/Sodium Chloride 1,000 mls @ 75 mls/hr 10/18/19 19:03 10/19 11:21 1/2 Ns W/Kcl 20 Meq IV 1,000 mls .[id number] ELY Administration Levothyroxine Sodium 50 mcg 10/12/19 06:00 10/20/19 02:27 Synthroid PO 50 mcg 0600 ELY Administration Ondansetron HCl 4 mg 10/10/19 10:10 10/11/19 12:36 Zofran IVP 4 mg Q6H PRN Administration Nausea/Vomiting Saccharomyces Boulardii 250 mg 10/13/19 09:00 10/20/19 08:12 Florastor PO 250 mg DAILY ELY Administration Sodium Chloride 10 ml 10/11/19 09:00 10/20/19 08:48 Flush - Normal Saline IVF Not Given Q12HR ELY Venlafaxine HCl 150 mg 10/12/19 09:00 10/20/19 08:12 Effexor Xr PO 150 mg DAILY ELY Administration - Exam General Appearance: awake alert ENT: normocephalic atraumatic Neck: supple Respiratory: normal chest expansion, no tachypnea Gastrointestinal: soft, non-tender, non-distended Neurological: cranial nerve grossly intact Hosp A/P - Plan Enterocutaneous fistula HTN DM2 Left lower buttock ulcer stage 4 Obesity BMI 36.1 Hyponatremia/hypokalemia/Hypomagnesemia CKD 2 Hypothyroidism Anxiety Chronic anemia prob due to nutritional def s/p Smart catheter placement 10/13 PLAN: 10/18: Cont IV Vanc/Zosyn Monitor Vanc level DC IVF if tolerating PO well Cont sliding scale Cont GI soft diet Cont other meds as above Cont wound care 10/19: The patient is tolerating his diet. Continue wound VAC management by surgery. No signs of sepsis. Hopefully can be discharged within the next 24 to 48 hours.
[2019-10-20] MEDS: Enoxaparin Sodium 40 MG/0.4 ML SYRINGE SC SCH (20:15)
--- NOTE | 2019-10-20 21:25 | PRG ---
DATE OF SERVICE: 10/20/2019 SUBJECTIVE: The patient was seen during morning rounds. Awake, alert, in no distress. The patient's pain is well controlled. The patient is tolerating his diet and has normal urine output. The patient voices no complaints or concerns. Left lower quadrant abdominal wound is noted with wound VAC in place. No large volume output. There are no peritoneal signs on exam. OBJECTIVE: VITAL SIGNS: Blood pressure 122/78, temperature 97.8, pulse 63, respirations 20, SpO2 of 94% on room air. PLAN: Continue with wound VAC dressing through the weekend. Supportive care. There is no acute surgical indication at this time for the patient. The patient was examined by Dr. Javed during morning rounds. Job ID: [id number]
[2019-10-21] MEDS: Vancomycin HCl 750 MG in Sodium Chloride 0.9% 250 ML 250 ML IVPB SCH ×2 (02:03→15:12)
--- NOTE | 2019-10-21 04:30 | PRG ---
DATE OF SERVICE: 10/20/2019 SUBJECTIVE: The patient was seen this evening during rounds. He was lying in bed comfortably asleep with no signs of acute distress. Nursing reported no acute events. OBJECTIVE: VITAL SIGNS: Temperature 98.2, pulse 71, respirations 16, oxygen saturation 96% on room air, blood pressure 116/72. ASSESSMENT: History of parastomal hernia and other incisional hernias with loss of domain, but nonobstructing with normal small-bowel follow-through. History of infectious mesh in left lower quadrant from previous hiatal repair in [employer] [place] with enterocutaneous fistula, appears to be low output. Continue current antibiotics. Continue current diet and pain regimen. Continue wound VAC. Dr. Madrigal to re-evaluate the wound on his return. Job ID: [id number]
[2019-10-21] MEDS: HYDROcodone/Acetaminophen 7.5/325 mg Tablet PO PRN ×4 (04:39→23:28)
[2019-10-21] MEDS: Piperacillin/Tazobactam 3.375 GM in Sodium Chloride 0.9% 100 ML IVPB SCH ×3 (05:30→18:10)
[2019-10-21] MEDS: Levothyroxine Sodium 50 MCG TAB PO SCH (05:31)
[2019-10-21 06:07] LABS: Phosphorus 3.3 mg/dL (2.3-4.7)
[2019-10-21 06:09] LABS: Anion Gap 10 mmol/L (10-20); BUN (Urea Nitrogen) 17 mg/dL (8.9-20.6); Calc. Creatinine Clearance 96 mL/min (70-130); Calcium 9.1 mg/dL (7.8-10.44); Carbon Dioxide 24 mmol/L (22-29); Chloride 107 mmol/L (98-107); Estimated GFR-MDRD 59; Glucose 79 mg/dL (70-105); Magnesium 1.7 mg/dL (1.6-2.6); Potassium 4.4 mmol/L (3.5-5.1); Sodium 137 mmol/L (136-145)
[2019-10-21 06:14] LABS: Hemoglobin 12.1 g/dL (14.0-18.0); Mean Corpuscular HGB CONC 32.2 g/dL (32.0-36.0); Mean Corpuscular Hemoglobin 26.8 pg (27.0-31.0); Mean Corpuscular Volume 83.2 fL (78.0-98.0); Mean Platelet Volume 7.1 fL (7.4-10.4); Platelet Count 308 thou/uL (130-400); RBC Distribution Width 15.9 % (11.5-14.5); Red Blood Cell (RBC) Count 4.53 mill/uL (4.70-6.10); White Blood Cell (WBC) Count 6.7 thou/uL (4.8-10.8)
[2019-10-21 07:48] LABS: Band 4 % (5-11); Eosinophils 2 % (0-10); Lymphocytes 26 % (21-51); MDiff Complete? YES; Monocytes 6 % (0-10); Neutrophil 62 % (42-75)
[2019-10-21] MEDS: Famotidine 20 MG TAB PO SCH ×2 (08:17→20:25)
[2019-10-21] MEDS: Venlafaxine HCl XR 150 MG CAP PO SCH (08:17)
[2019-10-21] MEDS: Saccharomyces boulardii 250 MG CAP PO SCH (08:17)
--- NOTE | 2019-10-21 10:22 | PDOC.HOSPP ---
- Subjective Encounter Date: 10/21/19 Subjective: No new complaints - Objective Vital Signs & Weight: Vital Signs (12 hours) Temp Pulse Resp BP BP Pulse Ox 10/21/19 08:15 95 10/21/19 07:50 97.6 F 66 18 118/75 95 10/21/19 07:29 98.6 F 66 16 122/81 95 Weight Admit Weight 216 lb 11.43 oz Weight 216 lb 11.43 oz I&O: 10/20/19 10/21/19 10/22/19 06:59 06:59 06:59 Intake Total 480 720 Output Total 1300 1400 Balance -820 -680 Result Diagrams: 10/21/19 05:30 10/21/19 05:30 Additional Labs: Accuchecks 10/21/19 10/20/19 10/20/19 04:47 19:39 16:31 POC Glucose 83 129 H 90 10/20/19 11:15 POC Glucose 105 Hospitalist ROS - Medication Medications: Active Medications Generic Name Dose Route Start Last Admin Trade Name Freq PRN Reason Stop Dose Admin Hydrocodone Bitart/Acetaminophen 2 tab 10/17/19 18:30 10/21/19 04:39 [place] 7.5/325 PO 2 tab Q6H PRN Administration MODERATE Pain 4-6 Enoxaparin Sodium 40 mg 10/11/19 21:00 10/20/19 20:15 Lovenox SC 40 mg 2100 ELY Administration Famotidine 20 mg 10/12/19 21:00 10/21/19 08:17 Pepcid PO 20 mg BID ELY Administration Dextrose/Water 1,000 mls @ 0 mls/hr 10/04/19 11:34 10/05/19 19:40 D5w IV 1,000 mls .Q0M PRN Administration Hypoglycemia As Directed Piperacillin Sod/Tazobactam 100 mls @ 200 mls/hr 10/11/19 12:00 10/21/19 05: 30 Sod 3.375 gm/ Sodium Chloride IVPB 100 mls Q6HR ELY Administration Vancomycin HCl 750 mg/ Sodium 250 mls @ 250 mls/hr 10/16/19 14:00 10/21/19 02 :03 Chloride IVPB 250 mls 0200,1400 ELY Administration Levothyroxine Sodium 50 mcg 10/12/19 06:00 10/21/19 05:31 Synthroid PO 50 mcg 0600 ELY Administration Ondansetron HCl 4 mg 10/10/19 10:10 10/11/19 12:36 Zofran IVP 4 mg Q6H PRN Administration Nausea/Vomiting Saccharomyces Boulardii 250 mg 10/13/19 09:00 10/21/19 08:17 Florastor PO 250 mg DAILY ELY Administration Sodium Chloride 10 ml 10/11/19 09:00 10/21/19 08:18 Flush - Normal Saline IVF 10 ml Q12HR ELY Administration Venlafaxine HCl 150 mg 10/12/19 09:00 10/21/19 08:17 Effexor Xr PO 150 mg DAILY ELY Administration - Exam General Appearance: awake alert ENT: normocephalic atraumatic Neck: supple Respiratory: normal chest expansion, no tachypnea Gastrointestinal: soft, tender to palpation Extremities: no cyanosis, no clubbing Neurological: cranial nerve grossly intact Hosp A/P - Plan Enterocutaneous fistula HTN DM2 Left lower buttock ulcer stage 4 Obesity BMI 36.1 Hyponatremia/hypokalemia/Hypomagnesemia CKD 2 Hypothyroidism Anxiety Chronic anemia prob due to nutritional def s/p Smart catheter placement 10/13 PLAN: Patient is progressing well with no signs of sepsis. Abdominal culture results showing growth of MRSA, pseudomonas aeruginosa, and Proteus species. The bacteria sensitive to current antibiotics of IV vancomycin and Zosyn. Continue current wound care management per surgery team. Patient with anterior cortical fistula that currently has a low output.
--- NOTE | 2019-10-21 12:58 | PRG ---
DATE OF SERVICE: 10/21/2019 SUBJECTIVE: Mr. Boykin is a 49-year-old man status post laparotomy. The patient remains awake and alert this morning, reporting no new complaints. He is tolerating diet and having a large colostomy output of liquid stool. He has remained hemodynamically stable and afebrile over the last 72 hours. OBJECTIVE: VITAL SIGNS: Current vital signs include blood pressure 118/75, pulse is 66, respiratory rate is 18, temperature 97.6 degrees Fahrenheit, and oxygen saturation is 95% on room air. Maximum temperature in the last 24 hours is 98.6 degrees Fahrenheit. ABDOMEN: Soft, nontender, and nondistended. Colostomy is viable and functional with stool and gas. Left lower quadrant wound is being managed with a wound VAC, which returns a scant amount of seropurulent fluid. The patient clearly has no peritoneal signs on examination. LABORATORY FINDINGS: Today include a CBC with 6700 white blood cells, hemoglobin and hematocrit stable at 12.1 and 37.7 respectively. Platelet count is 308,000. Metabolic profile: Today, sodium 137, potassium 4.4, chloride is 107, bicarb is 24, BUN is 17, creatinine is 1.30, glucose is 79, magnesium is 1.7, and phosphorus 3.3. ASSESSMENT AND PLAN: Continue with local wound care with wound VAC dressing in place. The patient's primary surgeon will be returning to service tomorrow and will make further determination as to the patient's future care. Job ID: [id number]
[2019-10-21 13:46] LABS: Vancomycin, Trough 14.2 ug/mL
[2019-10-21] MEDS: Enoxaparin Sodium 40 MG/0.4 ML SYRINGE SC SCH (20:26)
[2019-10-22] MEDS: Vancomycin HCl 750 MG in Sodium Chloride 0.9% 250 ML 250 ML IVPB SCH ×2 (02:19→14:46)
--- NOTE | 2019-10-22 03:15 | PRG ---
DATE OF SERVICE: 10/21/2019 SUBJECTIVE: The patient was seen this evening during rounds. He was sitting up in bed with no signs of acute distress. He reported some persistent left lower quadrant abdominal pain, but reported it was stable otherwise. He is tolerating his diet. OBJECTIVE: VITAL SIGNS: Temperature 97.6, pulse 66, respirations 20, oxygen saturation 95% on room air, and blood pressure 121/77. ASSESSMENT: 1. Status post parastomal and incisional hernia, chronic. 2. 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 Status post irrigation of the left lower quadrant wound. 3. History of hypertension and chronic kidney disease 2. PLAN: Continue current diet and pain regimen. Continue antibiotics. Continue VAC. Dr. Madrigal to evaluate in the morning. Job ID: [id number]
[2019-10-22] MEDS: Levothyroxine Sodium 50 MCG TAB PO SCH (05:58)
[2019-10-22] MEDS: HYDROcodone/Acetaminophen 7.5/325 mg Tablet PO PRN ×3 (06:06→23:38)
[2019-10-22 06:15] LABS: Hemoglobin 12.5 g/dL (14.0-18.0); Mean Corpuscular HGB CONC 32.1 g/dL (32.0-36.0); Mean Corpuscular Hemoglobin 26.7 pg (27.0-31.0); Mean Corpuscular Volume 83.2 fL (78.0-98.0); Mean Platelet Volume 6.9 fL (7.4-10.4); Platelet Count 321 thou/uL (130-400); RBC Distribution Width 15.9 % (11.5-14.5); Red Blood Cell (RBC) Count 4.67 mill/uL (4.70-6.10); White Blood Cell (WBC) Count 6.1 thou/uL (4.8-10.8)
[2019-10-22 06:30] LABS: Anion Gap 10 mmol/L (10-20); BUN (Urea Nitrogen) 17 mg/dL (8.9-20.6); Calc. Creatinine Clearance 116 mL/min (70-130); Calcium 9.5 mg/dL (7.8-10.44); Carbon Dioxide 26 mmol/L (22-29); Chloride 106 mmol/L (98-107); Estimated GFR-MDRD 73; Glucose 83 mg/dL (70-105); Potassium 4.2 mmol/L (3.5-5.1); Sodium 138 mmol/L (136-145)
[2019-10-22 06:38] LABS: Band 3 % (5-11); Eosinophils 9 % (0-10); Lymphocytes 20 % (21-51); MDiff Complete? YES; Monocytes 11 % (0-10); Neutrophil 56 % (42-75); Reactive Lymphocytes 1 % (0-10)
[2019-10-22] MEDS: Venlafaxine HCl XR 150 MG CAP PO SCH (08:22)
[2019-10-22] MEDS: Famotidine 20 MG TAB PO SCH ×2 (08:22→21:17)
[2019-10-22] MEDS: Saccharomyces boulardii 250 MG CAP PO SCH (08:22)
[2019-10-22] MEDS ORDERED: Piperacillin/Tazobactam 3.375 GM in Sodium Chloride 0.9% 100 ML IVPB SCH (13:15)
--- NOTE | 2019-10-22 15:18 | PRG ---
DATE OF SERVICE: 10/22/2019 SUBJECTIVE: Mr. Boykin has no complaints. Minimal pain at the open wound site. He is afebrile. Vital signs are stable. His abdomen is soft. His hernias are all reducible. There is stool and air in his ostomy bag. Examination of the wound VAC shows no obvious stool in it. White blood cell count is 6, hemoglobin is 12, platelet count is 321. Creatinine 1.07. ASSESSMENT: Enterocutaneous fistula, left lower quadrant, low output, appears to have resolved. The next step is to convert towards more wet-to-dry dressing, that may allow him to be discharged back to [facility]. We will have to decide on antibiotic course for and after the hospital. Job ID: [id number]
[2019-10-22] MEDS: Piperacillin/Tazobactam 3.375 GM in Sodium Chloride 0.9% 100 ML IVPB SCH ×2 (18:12→23:37)
--- NOTE | 2019-10-22 18:17 | PDOC.HOSPP ---
- Subjective Encounter Date: 10/22/19 Subjective: No new complains - Objective Vital Signs & Weight: Vital Signs (12 hours) Temp Pulse Resp BP Pulse Ox 10/22/19 08:20 98 10/22/19 07:57 98.1 F 80 18 106/67 78 L Weight Admit Weight 216 lb 11.43 oz Weight 216 lb 11.43 oz I&O: 10/21/19 10/22/19 10/23/19 06:59 06:59 06:59 Intake Total 720 2700 1450 Output Total 1400 3700 1900 Balance -680 -1000 -450 Result Diagrams: 10/22/19 06:00 10/22/19 06:00 Additional Labs: Accuchecks 10/22/19 10/22/19 10/22/19 16:52 11:59 05:34 POC Glucose 136 H 89 107 10/21/19 19:26 POC Glucose 116 H Hospitalist ROS - Medication Medications: Active Medications Generic Name Dose Route Start Last Admin Trade Name Freq PRN Reason Stop Dose Admin Hydrocodone Bitart/Acetaminophen 2 tab 10/17/19 18:30 10/22/19 14:46 [place] 7.5/325 PO 2 tab Q6H PRN Administration MODERATE Pain 4-6 Enoxaparin Sodium 40 mg 10/11/19 21:00 10/21/19 20:26 Lovenox SC 40 mg 2100 ELY Administration Famotidine 20 mg 10/12/19 21:00 10/22/19 08:22 Pepcid PO 20 mg BID ELY Administration Dextrose/Water 1,000 mls @ 0 mls/hr 10/04/19 11:34 10/05/19 19:40 D5w IV 1,000 mls .Q0M PRN Administration Hypoglycemia As Directed Vancomycin HCl 750 mg/ Sodium 250 mls @ 250 mls/hr 10/16/19 14:00 10/22/19 14 :46 Chloride IVPB 250 mls 0200,1400 ELY Administration Piperacillin Sod/Tazobactam 100 mls @ 200 mls/hr 10/22/19 18:00 10/22/19 18: 12 Sod 3.375 gm/ Sodium Chloride IVPB 100 mls Q6HR ELY Administration Levothyroxine Sodium 50 mcg 10/12/19 06:00 10/22/19 05:58 Synthroid PO 50 mcg 0600 ELY Administration Ondansetron HCl 4 mg 10/10/19 10:10 10/11/19 12:36 Zofran IVP 4 mg Q6H PRN Administration Nausea/Vomiting Saccharomyces Summerdii 250 mg 10/13/19 09:00 10/22/19 08:22 Florastor PO 250 mg DAILY ELY Administration Sodium Chloride 10 ml 10/11/19 09:00 10/22/19 08:23 Flush - Normal Saline IVF 10 ml Q12HR ELY Administration Venlafaxine HCl 150 mg 10/12/19 09:00 10/22/19 08:22 Effexor Xr PO 150 mg DAILY ELY Administration - Exam General Appearance: awake alert ENT: normocephalic atraumatic Neck: supple Respiratory: normal chest expansion, no tachypnea Gastrointestinal: soft Neurological: cranial nerve grossly intact Hosp A/P - Plan Enterocutaneous fistula HTN DM2 Left lower buttock ulcer stage 4 Obesity BMI 36.1 Hyponatremia/hypokalemia/Hypomagnesemia CKD 2 Hypothyroidism Anxiety Chronic anemia prob due to nutritional def s/p Smart catheter placement 10/13 PLAN: Patient is progressing well with no signs of sepsis. Abdominal culture results showing growth of MRSA, pseudomonas aeruginosa, and Proteus species. The bacteria sensitive to current antibiotics of IV vancomycin and Zosyn. ID consulted to help with outpatient antibiotic regimen. Continue current wound care management per surgery team. Patient with anterior cortical fistula that currently has a low output.
[2019-10-22] MEDS: Enoxaparin Sodium 40 MG/0.4 ML SYRINGE SC SCH (21:18)
[2019-10-23] MEDS: Vancomycin HCl 750 MG in Sodium Chloride 0.9% 250 ML 250 ML IVPB SCH ×2 (02:02→14:43)
[2019-10-23] MEDS: Piperacillin/Tazobactam 3.375 GM in Sodium Chloride 0.9% 100 ML IVPB SCH ×4 (06:09→23:48)
[2019-10-23] MEDS: Levothyroxine Sodium 50 MCG TAB PO SCH (06:09)
[2019-10-23] MEDS: HYDROcodone/Acetaminophen 7.5/325 mg Tablet PO PRN ×4 (06:12→23:53)
[2019-10-23 07:42] LABS: Anion Gap 12 mmol/L (10-20); BUN (Urea Nitrogen) 19 mg/dL (8.9-20.6); Calc. Creatinine Clearance 106 mL/min (70-130); Calcium 9.5 mg/dL (7.8-10.44); Carbon Dioxide 24 mmol/L (22-29); Chloride 107 mmol/L (98-107); Estimated GFR-MDRD 66; Glucose 84 mg/dL (70-105); Potassium 4.3 mmol/L (3.5-5.1); Sodium 139 mmol/L (136-145)
[2019-10-23 08:15] LABS: Band 2 % (5-11); Eosinophils 4 % (0-10); Hemoglobin 12.7 g/dL (14.0-18.0); Lymphocytes 14 % (21-51); MDiff Complete? YES; Mean Corpuscular HGB CONC 31.6 g/dL (32.0-36.0); Mean Corpuscular Hemoglobin 26.5 pg (27.0-31.0); Mean Corpuscular Volume 83.7 fL (78.0-98.0); Monocytes 5 % (0-10); Neutrophil 72 % (42-75); Platelet Count 325 thou/uL (130-400); Platelet Morphology Comment Appears Adequate; RBC Distribution Width 16.1 % (11.5-14.5); RBC Morphology Normal; Reactive Lymphocytes 3 % (0-10); Red Blood Cell (RBC) Count 4.78 mill/uL (4.70-6.10); White Blood Cell (WBC) Count 6.8 thou/uL (4.8-10.8)
[2019-10-23] MEDS: Famotidine 20 MG TAB PO SCH ×2 (08:55→20:07)
[2019-10-23] MEDS: Saccharomyces boulardii 250 MG CAP PO SCH (08:56)
[2019-10-23] MEDS: Venlafaxine HCl XR 150 MG CAP PO SCH (08:56)
--- NOTE | 2019-10-23 12:37 | PRG ---
DATE OF SERVICE: 10/23/2019 SUBJECTIVE: Mr. Boykin is seen during dressing change today. He has no complaints. He is tolerating regular diet. His wound is granulating in well. There is good granulation tissue. No evidence of ongoing infection. There is no stool or evidence of ongoing fistula. LABORATORY DATA: White blood cell count is normal. Normal differential. Hemoglobin 12. Creatinine is normal at 1.17. ASSESSMENT: Chronic left lower quadrant infection associated with enterocutaneous fistula. It appears to have resolved with no exposed mesh or foreign body on wound care and dressing change now. PLAN: I think he can be transitioned to oral antibiotics and then discharged back to nursing home for wet-to-dry dressing changes. Job ID: [id number]
[2019-10-23] MEDS: Enoxaparin Sodium 40 MG/0.4 ML SYRINGE SC SCH (20:07)
--- NOTE | 2019-10-23 20:17 | PDOC.HOSPP ---
- Subjective Encounter Date: 10/23/19 Subjective: No new complains - Objective Vital Signs & Weight: Vital Signs (12 hours) Temp Pulse Resp BP Pulse Ox 10/23/19 19:57 98.9 F 80 18 104/69 93 L Weight Admit Weight 216 lb 11.43 oz Weight 216 lb 11.43 oz I&O: 10/22/19 10/23/19 10/24/19 06:59 06:59 06:59 Intake Total 2700 1450 Output Total 3700 1900 Balance -1000 -450 Result Diagrams: 10/23/19 07:00 10/23/19 07:00 Additional Labs: Accuchecks 10/23/19 10/23/19 10/23/19 16:39 11:49 04:30 POC Glucose 119 H 156 H 90 10/22/19 19:51 POC Glucose 121 H Hospitalist ROS - Medication Medications: Active Medications Generic Name Dose Route Start Last Admin Trade Name Freq PRN Reason Stop Dose Admin Hydrocodone Bitart/Acetaminophen 2 tab 10/17/19 18:30 10/23/19 18:10 [place] 7.5/325 PO 2 tab Q6H PRN Administration MODERATE Pain 4-6 Enoxaparin Sodium 40 mg 10/11/19 21:00 10/23/19 20:07 Lovenox SC 40 mg 2100 ELY Administration Famotidine 20 mg 10/12/19 21:00 10/23/19 20:07 Pepcid PO 20 mg BID ELY Administration Dextrose/Water 1,000 mls @ 0 mls/hr 10/04/19 11:34 10/05/19 19:40 D5w IV 1,000 mls .Q0M PRN Administration Hypoglycemia As Directed Vancomycin HCl 750 mg/ Sodium 250 mls @ 250 mls/hr 10/16/19 14:00 10/23/19 14 :43 Chloride IVPB 250 mls 0200,1400 ELY Administration Piperacillin Sod/Tazobactam 100 mls @ 200 mls/hr 10/22/19 18:00 10/23/19 17: 36 Sod 3.375 gm/ Sodium Chloride IVPB 100 mls Q6HR ELY Administration Insulin Human Lispro 0 units 10/04/19 11:34 10/23/19 12:06 Humalog SC 2 unit .MILD SLIDING SCALE PRN Administration Mild Correctional Scale Levothyroxine Sodium 50 mcg 10/12/19 06:00 10/23/19 06:09 Synthroid PO 50 mcg 0600 ELY Administration Ondansetron HCl 4 mg 10/10/19 10:10 10/11/19 12:36 Zofran IVP 4 mg Q6H PRN Administration Nausea/Vomiting Saccharomyces Boulardii 250 mg 10/13/19 09:00 10/23/19 08:56 Florastor PO 250 mg DAILY ELY Administration Sodium Chloride 10 ml 10/11/19 09:00 10/23/19 20:08 Flush - Normal Saline IVF 10 ml Q12HR ELY Administration Venlafaxine HCl 150 mg 10/12/19 09:00 10/23/19 08:56 Effexor Xr PO 150 mg DAILY ELY Administration - Exam General Appearance: awake alert Neck: supple Respiratory: normal chest expansion, no tachypnea Gastrointestinal: soft Neurological: cranial nerve grossly intact Hosp A/P - Plan Enterocutaneous fistula HTN DM2 Left lower buttock ulcer stage 4 Obesity BMI 36.1 Hyponatremia/hypokalemia/Hypomagnesemia CKD 2 Hypothyroidism Anxiety Chronic anemia prob due to nutritional def s/p Smart catheter placement 10/13 PLAN: Patient is progressing well with no signs of sepsis. Abdominal culture results showing growth of MRSA, pseudomonas aeruginosa, and Proteus species. The bacteria sensitive to current antibiotics of IV vancomycin and Zosyn. ID consulted to help with outpatient antibiotic regimen. The patient is cleared for discharge with wet-to-dry dressing as soon as we have the outpatient antibiotic recommendations.
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
[2019-10-24] MEDS: Vancomycin HCl 750 MG in Sodium Chloride 0.9% 250 ML 250 ML IVPB SCH ×2 (02:32→13:23)
[2019-10-24] MEDS: Piperacillin/Tazobactam 3.375 GM in Sodium Chloride 0.9% 100 ML IVPB SCH ×3 (05:19→17:52)
[2019-10-24] MEDS: Levothyroxine Sodium 50 MCG TAB PO SCH (05:22)
[2019-10-24] MEDS: HYDROcodone/Acetaminophen 7.5/325 mg Tablet PO PRN ×3 (05:22→17:53)
[2019-10-24 05:54] LABS: Band 5 % (5-11); Eosinophils 4 % (0-10); Lymphocytes 23 % (21-51); MDiff Complete? YES; Mean Corpuscular HGB CONC 31.5 g/dL (32.0-36.0); Mean Corpuscular Hemoglobin 26.5 pg (27.0-31.0); Mean Corpuscular Volume 84.1 fL (78.0-98.0); Mean Platelet Volume 7.3 fL (7.4-10.4); Monocytes 7 % (0-10); Neutrophil 60 % (42-75); Platelet Count 287 thou/uL (130-400); Reactive Lymphocytes 1 % (0-10); Red Blood Cell (RBC) Count 4.52 mill/uL (4.70-6.10)
[2019-10-24 05:59] LABS: Anion Gap 10 mmol/L (10-20); BUN (Urea Nitrogen) 16 mg/dL (8.9-20.6); Calc. Creatinine Clearance 107 mL/min (70-130); Carbon Dioxide 24 mmol/L (22-29); Chloride 108 mmol/L (98-107); Estimated GFR-MDRD 67; Glucose 81 mg/dL (70-105); Potassium 4.2 mmol/L (3.5-5.1); Sodium 138 mmol/L (136-145)
[2019-10-24] MEDS: Saccharomyces boulardii 250 MG CAP PO SCH (08:20)
[2019-10-24] MEDS: Venlafaxine HCl XR 150 MG CAP PO SCH (08:20)
[2019-10-24] MEDS: Famotidine 20 MG TAB PO SCH ×2 (08:20→21:32)
--- NOTE | 2019-10-24 12:01 | MRI ---
MR of the pelvis with and without contrast INDICATION: History of chronic wound overlying the left buttock region COMPARISON: Prior CT of the abdomen and pelvis dated October 04, 2019. FINDINGS: 20 cc of MultiHance was utilized for the examination. Corresponding to the region of sclerosis involving the left ischial tuberosity is a small area of inc reased T2 signal, diminished T1 signal and cortical irregularity consistent with changes of likely chronic osteomyelitis. There is a full-thickness decubitus ulceration overlying the left ischial tube rosity with enhancing granulation tissue. No large drainable fluid collection is evident. No internal drainable fluid collection is seen within the pelvis. There are bilateral lower quadrant ost maicol sites with a parastomal hernia involving the right lower quadrant ostomy. There is a healed decubitus ulceration overlying the left posterior ilium with ankylosis of the left SI joint. IMPRESSION: Stage IV decubitus ulceration underlying the left ischial tuberosity with likely chronic osteomyelitis involving the left ischial tuberosity. No drainable fluid collection is evident.
[2019-10-24 13:40] LABS: Vancomycin, Trough 14.5 ug/mL
[2019-10-24] MEDS: Vancomycin 1 GM in Premix Bag 1 BAG IVPB SCH (13:57)
--- NOTE | 2019-10-24 16:31 | PRG ---
DATE OF SERVICE: SUBJECTIVE: Mr. Boykin is about the same. Not having much pain. OBJECTIVE: VITAL SIGNS: His temperature is normal. Other vital signs are normal. GENERAL: Awake, alert. LUNGS: Clear. HEART: S1 and S2 regular rate. ABDOMEN: Soft. The ileostomy as usual in the left fistulous drainage and the decubitus ulcer is same. LABORATORY DATA: White cell count 6.0, hemoglobin 12, platelets 287. Sodium 138, creatinine 1.16. Pelvis MRI showed stage IV decubitus ulceration with chronic osteomyelitis in the left ischial tuberosity. No fluid collection is evident. ASSESSMENT AND PLAN: At this point, we could continue the treatment with cefepime and vancomycin. He is currently on Zosyn and vancomycin that could be continued, but cefepime is less frequent administration, so make it easier for the receiving institution to follow through with the treatment. He will need weekly labs; CBC, CRP, vancomycin trough and comprehensive metabolic panel. The duration of therapy would be until December 05 approximately and followup MRI would be advised. Surgical debridement of the ischial area might be considered before discharge planning. Job ID: [id number]
--- NOTE | 2019-10-24 17:13 | PDOC.HOSPP ---
- Subjective Encounter Date: 10/24/19 Subjective: No new complains. - Objective Vital Signs & Weight: Vital Signs (12 hours) Temp Pulse Resp BP Pulse Ox 10/24/19 07:46 97.6 F 63 20 103/69 95 Weight Admit Weight 216 lb 11.43 oz Weight 216 lb 11.43 oz I&O: 10/23/19 10/24/19 10/25/19 06:59 06:59 06:59 Intake Total 1450 Output Total 1900 Balance -450 Result Diagrams: 10/24/19 05:25 10/24/19 05:25 Additional Labs: Accuchecks 10/24/19 10/24/19 10/24/19 15:58 10:38 04:25 POC Glucose 132 H 91 85 10/23/19 20:05 POC Glucose 131 H Hospitalist ROS - Medication Medications: Active Medications Generic Name Dose Route Start Last Admin Trade Name Freq PRN Reason Stop Dose Admin Hydrocodone Bitart/Acetaminophen 2 tab 10/17/19 18:30 10/24/19 11:57 [place] 7.5/325 PO 2 tab Q6H PRN Administration MODERATE Pain 4-6 Enoxaparin Sodium 40 mg 10/11/19 21:00 10/23/19 20:07 Lovenox SC 40 mg 2100 ELY Administration Famotidine 20 mg 10/12/19 21:00 10/24/19 08:20 Pepcid PO 20 mg BID ELY Administration Dextrose/Water 1,000 mls @ 0 mls/hr 10/04/19 11:34 10/05/19 19:40 D5w IV 1,000 mls .Q0M PRN Administration Hypoglycemia As Directed Piperacillin Sod/Tazobactam 100 mls @ 200 mls/hr 10/22/19 18:00 10/24/19 11: 56 Sod 3.375 gm/ Sodium Chloride IVPB 100 mls Q6HR ELY Administration Vancomycin HCl 1 gm/ Device 200 mls @ 200 mls/hr 10/24/19 14:00 10/24/19 13: 57 IVPB Not Given 0200,1400 ELY Insulin Human Lispro 0 units 10/04/19 11:34 10/23/19 12:06 Humalog SC 2 unit .MILD SLIDING SCALE PRN Administration Mild Correctional Scale Levothyroxine Sodium 50 mcg 10/12/19 06:00 10/24/19 05:22 Synthroid PO 50 mcg 0600 ELY Administration Ondansetron HCl 4 mg 10/10/19 10:10 10/11/19 12:36 Zofran IVP 4 mg Q6H PRN Administration Nausea/Vomiting Saccharomyces Summerdii 250 mg 10/13/19 09:00 10/24/19 08:20 Florastor PO 250 mg DAILY ELY Administration Sodium Chloride 10 ml 10/11/19 09:00 10/24/19 08:21 Flush - Normal Saline IVF 10 ml Q12HR ELY Administration Venlafaxine HCl 150 mg 10/12/19 09:00 10/24/19 08:20 Effexor Xr PO 150 mg DAILY ELY Administration - Exam General Appearance: awake alert ENT: normocephalic atraumatic Neck: supple Heart: RRR Respiratory: normal chest expansion, no tachypnea Gastrointestinal: soft Extremities: no cyanosis, no clubbing Neurological: cranial nerve grossly intact Hosp A/P - Plan Enterocutaneous fistula HTN DM2 Left lower buttock ulcer stage 4 Obesity BMI 36.1 Hyponatremia/hypokalemia/Hypomagnesemia CKD 2 Hypothyroidism Anxiety Chronic anemia prob due to nutritional def s/p Msart catheter placement 10/13 PLAN: Patient is progressing well with no signs of sepsis. Low output from the enterocutaneous fistula. Abdominal culture results showing growth of MRSA, pseudomonas aeruginosa, and Proteus species. The bacteria sensitive to current IV antibiotics. The patient is cleared for discharge with wet-to-dry dressing for the abdominal wound. MRI of the pelvis revealed Ischial tuberosity osteomyelitis. ID recommended Continuing IV antibiotics until December 05. Evaluation by surgery for debridement is pending.
[2019-10-24] MEDS: Enoxaparin Sodium 40 MG/0.4 ML SYRINGE SC SCH (21:32)
[2019-10-25] MEDS: HYDROcodone/Acetaminophen 7.5/325 mg Tablet PO PRN ×3 (00:10→16:23)
[2019-10-25] MEDS: Piperacillin/Tazobactam 3.375 GM in Sodium Chloride 0.9% 100 ML IVPB SCH ×4 (00:11→17:12)
[2019-10-25] MEDS: Vancomycin 1 GM in Premix Bag 1 BAG IVPB SCH ×2 (02:00→14:07)
[2019-10-25] MEDS: Levothyroxine Sodium 50 MCG TAB PO SCH (05:46)
[2019-10-25 06:29] LABS: Band 2 % (5-11); Eosinophils 5 % (0-10); Hemoglobin 12.1 g/dL (14.0-18.0); Lymphocytes 15 % (21-51); MDiff Complete? YES; Mean Corpuscular HGB CONC 32.9 g/dL (32.0-36.0); Mean Corpuscular Hemoglobin 27.3 pg (27.0-31.0); Monocytes 12 % (0-10); Neutrophil 66 % (42-75); Platelet Count 296 thou/uL (130-400); Platelet Morphology Comment Appears Adequate; RBC Distribution Width 15.7 % (11.5-14.5); Red Blood Cell (RBC) Count 4.44 mill/uL (4.70-6.10); White Blood Cell (WBC) Count 6.8 thou/uL (4.8-10.8)
[2019-10-25 06:36] LABS: Anion Gap 9 mmol/L (10-20); BUN (Urea Nitrogen) 14 mg/dL (8.9-20.6); Calc. Creatinine Clearance 104 mL/min (70-130); Calcium 9.4 mg/dL (7.8-10.44); Carbon Dioxide 26 mmol/L (22-29); Chloride 107 mmol/L (98-107); Estimated GFR-MDRD 65; Glucose 74 mg/dL (70-105); Potassium 4.1 mmol/L (3.5-5.1); Sodium 138 mmol/L (136-145)
[2019-10-25] MEDS: Famotidine 20 MG TAB PO SCH ×2 (10:12→20:43)
[2019-10-25] MEDS: Saccharomyces boulardii 250 MG CAP PO SCH (10:12)
[2019-10-25] MEDS: Venlafaxine HCl XR 150 MG CAP PO SCH (10:13)
[2019-10-25] MEDS ORDERED: Fentanyl 100 MCG/2 ML VIAL ONE (11:45)
[2019-10-25] MEDS ORDERED: Midazolam HCl 2 mg/2 ml Vial ONE (11:45)
[2019-10-25] MEDS ORDERED: Famotidine/PF 20 mg/2ml Vial ONE (11:45)
[2019-10-25] MEDS ORDERED: Morphine 4 MG/ML VIAL ONE (13:06)
[2019-10-25] MEDS ORDERED: Morphine 2 MG/ML SYRINGE ONE ×2 (13:07→13:25)
[2019-10-25] MEDS ORDERED: HYDROmorphone 2 MG/ML VIAL SLOW IVP PRN (13:10)
[2019-10-25] MEDS ORDERED: Ondansetron HCl/PF 4 MG/2 ML Vial IVP PRN (13:10)
[2019-10-25] MEDS ORDERED: Promethazine HCl 25 MG/ML VIAL SLOW IVP PRN (13:10)
[2019-10-25] MEDS ORDERED: Meperidine HCl/PF 25 MG/ML VIAL SLOW IVP PRN (13:10)
[2019-10-25] MEDS ORDERED: Promethazine HCl 25 MG/ML VIAL IM PRN (13:10)
[2019-10-25] MEDS ORDERED: Ketorolac Tromethamine 30 MG/ML VIAL IVP PRN (13:10)
--- NOTE | 2019-10-25 14:48 | OP ---
DATE OF PROCEDURE: 10/04/2019 PREOPERATIVE DIAGNOSIS: Left ischial decubitus wound. POSTOPERATIVE DIAGNOSIS: Left ischial decubitus wound. PROCEDURE PERFORMED: Debridement of skin, subcutaneous tissue, fascia, and bone to left ischial sacral decubitus wound. ANESTHESIA: General. ESTIMATED BLOOD LOSS: Minimal. COMPLICATIONS: None. DESCRIPTION OF PROCEDURE: The patient was taken to the operating room and laid supine on the operating room table. After general anesthetic was obtained, he was placed in a right lateral decubitus position. The ischial sacral decubitus wound areas all prepped and draped in a sterile fashion. The opening down to the bone was opened to facilitate packing. [place] was used to debride the exposed bowel. There was no purulence. There was good granulation tissue. The wound was irrigated and packed using wet-to-dry saline-soaked gauze. The patient was sent to Recovery in stable condition. All instrument counts, needle counts, and lap counts were correct. Job ID: [id number]
[2019-10-25] MEDS ORDERED: Rocuronium Bromide 10 MG/ML (10ML VIAL) ONE (15:23)
[2019-10-25] MEDS ORDERED: Ondansetron PF 4 MG/2 ML Vial ONE (15:23)
[2019-10-25] MEDS ORDERED: Lidocaine 1% PF 5 ML VIAL ONE (15:23)
[2019-10-25] MEDS ORDERED: Glycopyrrolate 0.2 MG/ML 5 ML SYRINGE ONE (15:23)
[2019-10-25] MEDS ORDERED: PROPOFOL 200 MG/20 ML VIAL ONE (15:23)
[2019-10-25] MEDS ORDERED: Succinylcholine Chloride 20 MG/ML 10 ml SYRINGE FS ONE (15:23)
--- NOTE | 2019-10-25 16:53 | PDOC.HOSPP ---
- Subjective Encounter Date: 10/25/19 Encounter Time: 10:00 Subjective: Patient seen and examined for med mngt. No N/V/fever. NPO for debridement. No new complaints. No overnight events - Objective Vital Signs & Weight: Vital Signs (12 hours) Temp Pulse Resp BP BP Pulse Ox 10/25/19 16:00 97.6 F 93 18 100/68 97 10/25/19 15:04 99 115/79 10/25/19 14:29 90/56 L 10/25/19 14:10 79 97/65 99 10/25/19 13:58 97.5 F L 70 18 94/60 100 10/25/19 08:00 97.9 F 64 18 103/68 96 Weight Admit Weight 216 lb 11.43 oz Weight 216 lb 11.43 oz I&O: 10/24/19 10/25/19 10/26/19 06:59 06:59 06:59 Output Total 615 Balance -615 Result Diagrams: 10/25/19 05:55 10/25/19 05:55 Additional Labs: Accuchecks 10/25/19 10/25/19 10/25/19 16:30 14:26 04:38 POC Glucose 131 H 102 104 10/24/19 19:28 POC Glucose 119 H Radiology Reviewed by me: Yes (MRI pelvis- Chronic osteo) Hospitalist ROS - Review of Systems Cardiovascular: denies: chest pain, palpitations, orthopnea, paroxysmal noc. dyspnea, edema, light headedness, other Gastrointestinal: denies: nausea, vomiting, abdominal pain, diarrhea, constipation, melena, hematochezia, other - Medication Medications: Active Medications Generic Name Dose Route Start Last Admin Trade Name Freq PRN Reason Stop Dose Admin Hydrocodone Bitart/Acetaminophen 2 tab 10/17/19 18:30 10/25/19 16:23 [place] 7.5/325 PO 2 tab Q6H PRN Administration MODERATE Pain 4-6 Enoxaparin Sodium 40 mg 10/11/19 21:00 10/24/19 21:32 Lovenox SC Not Given 2100 ELY Famotidine 20 mg 10/12/19 21:00 10/25/19 10:12 Pepcid PO Not Given BID ELY Dextrose/Water 1,000 mls @ 0 mls/hr 10/04/19 11:34 10/05/19 19:40 D5w IV 1,000 mls .Q0M PRN Administration Hypoglycemia As Directed Piperacillin Sod/Tazobactam 100 mls @ 200 mls/hr 10/22/19 18:00 10/25/19 14: 11 Sod 3.375 gm/ Sodium Chloride IVPB Not Given Q6HR ELY Vancomycin HCl 1 gm/ Device 200 mls @ 200 mls/hr 10/24/19 14:00 10/25/19 14: 07 IVPB 200 mls 0200,1400 ELY Administration Insulin Human Lispro 0 units 10/04/19 11:34 10/23/19 12:06 Humalog SC 2 unit .MILD SLIDING SCALE PRN Administration Mild Correctional Scale Levothyroxine Sodium 50 mcg 10/12/19 06:00 10/25/19 05:46 Synthroid PO 50 mcg 0600 ELY Administration Ondansetron HCl 4 mg 10/10/19 10:10 10/11/19 12:36 Zofran IVP 4 mg Q6H PRN Administration Nausea/Vomiting Saccharomyces Boulardii 250 mg 10/13/19 09:00 10/25/19 10:12 Florastor PO Not Given DAILY [facility]ENDING [facility]ALE TO [facility] Sodium Chloride 10 ml 10/11/19 09:00 10/25/19 10:13 Flush - Normal Saline IVF Not Given Q12HR PENDING SALE TO [facility] Venlafaxine HCl 150 mg 10/12/19 09:00 10/25/19 10:13 Effexor Xr PO Not Given DAILY ELY - Exam General Appearance: NAD Neck: supple, no JVD Heart: RRR, no gallops Respiratory: no wheezes, no ronchi Gastrointestinal: non-tender, non-distended, normal bowel sounds Hosp A/P - Plan DVT proph w/lovenox Enterocutaneous fistula HTN DM2 Left lower 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
[2019-10-25] MEDS: Atorvastatin Calcium 10 MG TAB PO SCH (20:43)
[2019-10-25] MEDS: Ascorbic Acid 500 mg Chewable Tablet PO SCH (20:43)
[2019-10-25] MEDS: Enoxaparin Sodium 40 MG/0.4 ML SYRINGE SC SCH (20:44)
[2019-10-26] MEDS: HYDROcodone/Acetaminophen 7.5/325 mg Tablet PO PRN ×4 (00:07→21:39)
[2019-10-26] MEDS: Piperacillin/Tazobactam 3.375 GM in Sodium Chloride 0.9% 100 ML IVPB SCH ×5 (00:08→23:38)
[2019-10-26 03:31] LABS: Vancomycin, Trough 19.2 ug/mL
[2019-10-26] MEDS: Vancomycin 1 GM in Premix Bag 1 BAG IVPB SCH ×3 (03:48→15:30)
[2019-10-26] MEDS: Levothyroxine Sodium 50 MCG TAB PO SCH (05:02)
[2019-10-26] MEDS: Saccharomyces boulardii 250 MG CAP PO SCH (08:14)
[2019-10-26] MEDS: Venlafaxine HCl XR 150 MG CAP PO SCH (08:15)
[2019-10-26] MEDS: Famotidine 20 MG TAB PO SCH ×2 (08:15→21:39)
[2019-10-26] MEDS: Multivit, Therapeutic 1 TAB PO SCH (08:15)
[2019-10-26] MEDS: Ascorbic Acid 500 mg Chewable Tablet PO SCH ×2 (08:15→21:39)
--- NOTE | 2019-10-26 10:49 | PRG ---
DATE OF SERVICE: 10/26/2019 SUBJECTIVE: Mr. Boykin has no complaints today. He is complaining of more soreness at his decubitus wound site. OBJECTIVE: VITAL SIGNS: He is afebrile. Vital signs are stable. ABDOMEN: Soft and nontender. His ostomy has stool and air in it. The front wound has a VAC on it. LABORATORY DATA: His blood sugars have been stable in the 100 to 140s. ASSESSMENT: 1. 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 2. History of enterocutaneous fistula in left lower abdomen improved. No ongoing fistula. Wound healing and granulating well. 3. Left ischial sacral decubitus wound, postop day #1 debridement. There was no significant devitalized tissue. Bone debridement was performed. PLAN: On Monday, need to arrange for IV antibiotics at an [facility] location. Convert wound care to wet to dries in both locations. Job ID: [id number]
--- NOTE | 2019-10-26 12:20 | PDOC.HOSPP ---
- Subjective Encounter Date: 10/26/19 Encounter Time: 11:15 Subjective: Patient seen and examined for med mngt. No fever or chills. No new complaints. No overnight events - Objective Vital Signs & Weight: Vital Signs (12 hours) Temp Pulse Resp BP BP Pulse Ox 10/26/19 08:15 95 10/26/19 07:21 98.5 F 72 18 93/60 95 10/26/19 04:00 73 90/60 Weight Admit Weight 216 lb 11.43 oz Weight 216 lb 11.43 oz I&O: 10/25/19 10/26/19 10/27/19 06:59 06:59 06:59 Intake Total 1280 Output Total 615 1250 Balance -615 30 Result Diagrams: 10/25/19 05:55 10/25/19 05:55 Additional Labs: Accuchecks 10/26/19 10/25/19 10/25/19 04:22 19:20 16:30 POC Glucose 118 H 140 H 131 H 10/25/19 14:26 POC Glucose 102 Hospitalist ROS - Review of Systems Respiratory: denies: cough, dry, shortness of breath, hemoptysis, SOB with excertion, pleuritic pain, sputum, wheezing, other Cardiovascular: denies: chest pain, palpitations, orthopnea, paroxysmal noc. dyspnea, edema, light headedness, other - Medication Medications: Active Medications Generic Name Dose Route Start Last Admin Trade Name Freq PRN Reason Stop Dose Admin Hydrocodone Bitart/Acetaminophen 2 tab 10/17/19 18:30 10/26/19 08:15 [place] 7.5/325 PO 2 tab Q6H PRN Administration MODERATE Pain 4-6 Ascorbic Acid 500 mg 10/25/19 21:00 10/26/19 08:15 Vitamin C PO 500 mg BID ELY Administration Atorvastatin Calcium 10 mg 10/25/19 21:00 10/25/19 20:43 Lipitor PO 10 mg HS ELY Administration Enoxaparin Sodium 40 mg 10/11/19 21:00 10/25/19 20:44 Lovenox SC 40 mg 2100 ELY Administration Famotidine 20 mg 10/12/19 21:00 10/26/19 08:15 Pepcid PO 20 mg BID ELY Administration Dextrose/Water 1,000 mls @ 0 mls/hr 10/04/19 11:34 10/05/19 19:40 D5w IV 1,000 mls .Q0M PRN Administration Hypoglycemia As Directed Piperacillin Sod/Tazobactam 100 mls @ 200 mls/hr 10/22/19 18:00 10/26/19 12: 08 Sod 3.375 gm/ Sodium Chloride IVPB 100 mls Q6HR ELY Administration Vancomycin HCl 1 gm/ Device 200 mls @ 200 mls/hr 10/26/19 04:00 10/26/19 03: 48 IVPB 200 mls 0400,1600 ELY Administration Insulin Human Lispro 0 units 10/04/19 11:34 10/23/19 12:06 Humalog SC 2 unit .MILD SLIDING SCALE PRN Administration Mild Correctional Scale Levothyroxine Sodium 50 mcg 10/12/19 06:00 10/26/19 05:02 Synthroid PO 50 mcg 0600 ELY Administration Multivitamins 1 tab 10/26/19 09:00 10/26/19 08:15 Theragran PO 1 tab DAILY ELY Administration Ondansetron HCl 4 mg 10/10/19 10:10 10/11/19 12:36 Zofran IVP 4 mg Q6H PRN Administration Nausea/Vomiting Saccharomyces Boulardii 250 mg 10/13/19 09:00 10/26/19 08:14 Florastor PO 250 mg DAILY ELY Administration Sodium Chloride 10 ml 10/11/19 09:00 10/26/19 09:54 Flush - Normal Saline IVF Not Given Q12HR ELY Venlafaxine HCl 150 mg 10/12/19 09:00 10/26/19 08:15 Effexor Xr PO 150 mg DAILY ELY Administration - Exam General Appearance: NAD Neck: supple, no JVD Heart: RRR, no gallops Respiratory: no wheezes, no ronchi Gastrointestinal: non-tender, non-distended, normal bowel sounds Extremities: no cyanosis Neurological: no new deficit Hosp A/P - Plan DVT proph w/lovenox, DVT proph w/SCDs 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
[2019-10-26] MEDS: Enoxaparin Sodium 40 MG/0.4 ML SYRINGE SC SCH (21:39)
[2019-10-26] MEDS: Atorvastatin Calcium 10 MG TAB PO SCH (21:39)
[2019-10-27] MEDS: Vancomycin 1 GM in Premix Bag 1 BAG IVPB SCH ×2 (03:34→15:54)
[2019-10-27] MEDS: HYDROcodone/Acetaminophen 7.5/325 mg Tablet PO PRN ×4 (03:35→22:08)
[2019-10-27] MEDS: Piperacillin/Tazobactam 3.375 GM in Sodium Chloride 0.9% 100 ML IVPB SCH ×4 (05:38→23:48)
[2019-10-27] MEDS: Levothyroxine Sodium 50 MCG TAB PO SCH (05:41)
[2019-10-27] MEDS: Ascorbic Acid 500 mg Chewable Tablet PO SCH ×2 (09:21→20:54)
[2019-10-27] MEDS: Saccharomyces boulardii 250 MG CAP PO SCH (09:21)
[2019-10-27] MEDS: Famotidine 20 MG TAB PO SCH ×2 (09:21→20:54)
[2019-10-27] MEDS: Multivit, Therapeutic 1 TAB PO SCH (09:21)
[2019-10-27] MEDS: Venlafaxine HCl XR 150 MG CAP PO SCH (09:21)
--- NOTE | 2019-10-27 11:35 | PRG ---
DATE OF SERVICE: 10/27/2019 SUBJECTIVE: Mr. Boykin has no complaints. He had bleeding the first night after debridement of his ischial decubitus wound, but it is improved now. He is tolerating a regular diet. OBJECTIVE: The dressings are all clear. His abdomen is soft and nontender. ASSESSMENT: 1. Parastomal hernia with loss of domain, stable. 2. History of question small-bowel obstruction with normal small bowel follow-through, stable. 3. Enterocutaneous fistula in area of old mesh in left lower quadrant, improved, resolved. Wound healing well. 4. Ischial decubitus wound, status post debridement of the ischial bone. PLAN: We will need to arrange for IV antibiotics and wound care when he goes to [facility]. We will start that process on Monday. Job ID: [id number]
--- NOTE | 2019-10-27 13:21 | PDOC.HOSPP ---
- Subjective Encounter Date: 10/27/19 Subjective: patient seen on f/u, had no complains, refers pain is well controlled, denies any fever chills nausea or vomiting - Objective Vital Signs & Weight: Vital Signs (12 hours) Temp Pulse Resp BP Pulse Ox 10/27/19 07:42 97 10/27/19 07:28 98.5 F 66 18 93/61 97 Weight Admit Weight 216 lb 11.43 oz Weight 216 lb 11.43 oz I&O: 10/26/19 10/27/19 10/28/19 06:59 06:59 06:59 Intake Total 1280 2760 Output Total 1250 4150 Balance 30 -1390 Result Diagrams: 10/25/19 05:55 10/25/19 05:55 Additional Labs: Accuchecks 10/27/19 10/27/19 10/26/19 11:59 04:02 19:56 POC Glucose 97 101 112 H 10/26/19 17:18 POC Glucose 114 H Hospitalist ROS - Review of Systems All other systems reviewed; all pertinent +/- noted in HPI/Subj - Medication Medications: Active Medications Generic Name Dose Route Start Last Admin Trade Name Freq PRN Reason Stop Dose Admin Hydrocodone Bitart/Acetaminophen 2 tab 10/17/19 18:30 10/27/19 09:37 [place] 7.5/325 PO 2 tab Q6H PRN Administration MODERATE Pain 4-6 Ascorbic Acid 500 mg 10/25/19 21:00 10/27/19 09:21 Vitamin C PO 500 mg BID ELY Administration Atorvastatin Calcium 10 mg 10/25/19 21:00 10/26/19 21:39 Lipitor PO 10 mg HS ELY Administration Enoxaparin Sodium 40 mg 10/11/19 21:00 10/26/19 21:39 Lovenox SC 40 mg 2100 ELY Administration Famotidine 20 mg 10/12/19 21:00 10/27/19 09:21 Pepcid PO 20 mg BID ELY Administration Dextrose/Water 1,000 mls @ 0 mls/hr 10/04/19 11:34 10/05/19 19:40 D5w IV 1,000 mls .Q0M PRN Administration Hypoglycemia As Directed Piperacillin Sod/Tazobactam 100 mls @ 200 mls/hr 10/22/19 18:00 10/27/19 12: 02 Sod 3.375 gm/ Sodium Chloride IVPB 100 mls Q6HR ELY Administration Vancomycin HCl 1 gm/ Device 200 mls @ 200 mls/hr 10/26/19 04:00 10/27/19 03: 34 IVPB 200 mls 0400,1600 ELY Administration Insulin Human Lispro 0 units 10/04/19 11:34 10/23/19 12:06 Humalog SC 2 unit .MILD SLIDING SCALE PRN Administration Mild Correctional Scale Levothyroxine Sodium 50 mcg 10/12/19 06:00 10/27/19 05:41 Synthroid PO 50 mcg 0600 ELY Administration Multivitamins 1 tab 10/26/19 09:00 10/27/19 09:21 Theragran PO 1 tab DAILY ELY Administration Ondansetron HCl 4 mg 10/10/19 10:10 10/11/19 12:36 Zofran IVP 4 mg Q6H PRN Administration Nausea/Vomiting Saccharomyces Boulardii 250 mg 10/13/19 09:00 10/27/19 09:21 Florastor PO 250 mg DAILY ELY Administration Sodium Chloride 10 ml 10/11/19 09:00 10/27/19 09:22 Flush - Normal Saline IVF Not Given Q12HR ELY Venlafaxine HCl 150 mg 10/12/19 09:00 10/27/19 09:21 Effexor Xr PO 150 mg DAILY ELY Administration - Exam General Appearance: NAD, awake alert Eye: PERRL, anicteric sclera ENT: normocephalic atraumatic, no oropharyngeal lesions Neck: supple, symmetric, no JVD, no thyromegaly Heart: RRR, no murmur, no gallops Respiratory: CTAB, no wheezes, no rales, no ronchi Gastrointestinal: soft, non-tender, non-distended, normal bowel sounds Skin: normal turgor Neurological: cranial nerve grossly intact, normal sensation to touch, no focal deficits Musculoskeletal: normal tone, normal strength Psychiatric: normal affect, normal behavior, A&O x 3 Hosp A/P - Plan enterocutaneous fistula stage 4 pressure ulcer w chronic osteomyelitis s/p i&D on 10/24 htn dm2 ckd2 hypothyroidism chronic anemia plan continue iv vanc abx until 12/05 as per id continue accu checks and sliding scale, adjust as necessary continue home meds for chronic conditions cont w wound care following surgeon recommendations pt is an inmate need to schedule vac system and abx treatment with [facility], this has to happened on wkdays
[2019-10-27 15:14] LABS: Vancomycin, Trough 18.2 ug/mL
[2019-10-27] MEDS: Enoxaparin Sodium 40 MG/0.4 ML SYRINGE SC SCH (20:53)
[2019-10-27] MEDS: Atorvastatin Calcium 10 MG TAB PO SCH (20:54)
[2019-10-28] MEDS: HYDROcodone/Acetaminophen 7.5/325 mg Tablet PO PRN ×4 (03:28→22:25)
[2019-10-28] MEDS: Vancomycin 1 GM in Premix Bag 1 BAG IVPB SCH ×2 (03:28→15:35)
[2019-10-28] MEDS: Levothyroxine Sodium 50 MCG TAB PO SCH (05:57)
[2019-10-28] MEDS: Piperacillin/Tazobactam 3.375 GM in Sodium Chloride 0.9% 100 ML IVPB SCH ×4 (05:57→23:44)
--- NOTE | 2019-10-28 08:11 | PRG ---
DATE OF SERVICE: SUBJECTIVE: Mr. Boykin has no complaints. OBJECTIVE: VITAL SIGNS: He is afebrile. Vital signs are stable. EXTREMITIES: Wounds are all dressed. ASSESSMENT: 1. Left ischial sacral decubitus wound with mild osteo, status post debridement. 2. Chronic open wound, left lower abdomen, granulating in, enterocutaneous fistula, appears to have resolved. PLAN: He can be converted to outpatient treatment. He will need wet-to-dry dressing changes daily at both sites and IV antibiotics per Dr. Matthews. He is okay to go home from my standpoint at any time. Job ID: [id number]
[2019-10-28] MEDS: Famotidine 20 MG TAB PO SCH ×2 (08:20→20:48)
[2019-10-28] MEDS: Venlafaxine HCl XR 150 MG CAP PO SCH (08:20)
[2019-10-28] MEDS: Multivit, Therapeutic 1 TAB PO SCH (08:20)
[2019-10-28] MEDS: Ascorbic Acid 500 mg Chewable Tablet PO SCH ×2 (08:21→20:49)
[2019-10-28] MEDS: Saccharomyces boulardii 250 MG CAP PO SCH (08:21)
--- NOTE | 2019-10-28 11:17 | PDOC.HOSPP ---
- Subjective Encounter Date: 10/28/19 Encounter Time: 10:30 Subjective: Patient seen and examined for med mngt. No N/V/fever. No new complaints. No overnight events - Objective Vital Signs & Weight: Vital Signs (12 hours) Temp Pulse Resp BP Pulse Ox 10/28/19 08:00 97.7 F 81 18 101/66 96 Weight Admit Weight 216 lb 11.43 oz Weight 216 lb 11.43 oz I&O: 10/27/19 10/28/19 10/29/19 06:59 06:59 06:59 Intake Total 2760 1550 Output Total 4150 1400 Balance -1390 150 Result Diagrams: 10/25/19 05:55 10/25/19 05:55 Additional Labs: Accuchecks 10/28/19 10/27/19 10/27/19 05:48 20:25 15:27 POC Glucose 113 H 120 H 136 H 10/27/19 11:59 POC Glucose 97 Hospitalist ROS - Review of Systems Respiratory: denies: cough, dry, shortness of breath, hemoptysis, SOB with excertion, pleuritic pain, sputum, wheezing, other Cardiovascular: denies: chest pain, palpitations, orthopnea, paroxysmal noc. dyspnea, edema, light headedness, other - Medication Medications: Active Medications Generic Name Dose Route Start Last Admin Trade Name Freq PRN Reason Stop Dose Admin Hydrocodone Bitart/Acetaminophen 2 tab 10/27/19 19:57 10/28/19 10:08 [place] 7.5/325 PO 2 tab Q6H PRN Administration Moderate Pain (4-6) Ascorbic Acid 500 mg 10/25/19 21:00 10/28/19 08:21 Vitamin C PO 500 mg BID ELY Administration Atorvastatin Calcium 10 mg 10/25/19 21:00 10/27/19 20:54 Lipitor PO 10 mg HS ELY Administration Enoxaparin Sodium 40 mg 10/11/19 21:00 10/27/19 20:53 Lovenox SC 40 mg 2100 ELY Administration Famotidine 20 mg 10/12/19 21:00 10/28/19 08:20 Pepcid PO 20 mg BID ELY Administration Dextrose/Water 1,000 mls @ 0 mls/hr 10/04/19 11:34 10/05/19 19:40 D5w IV 1,000 mls .Q0M PRN Administration Hypoglycemia As Directed Piperacillin Sod/Tazobactam 100 mls @ 200 mls/hr 10/22/19 18:00 10/28/19 05: 57 Sod 3.375 gm/ Sodium Chloride IVPB 100 mls Q6HR ELY Administration Vancomycin HCl 1 gm/ Device 200 mls @ 200 mls/hr 10/26/19 04:00 10/28/19 03: 28 IVPB 200 mls 0400,1600 ELY Administration Insulin Human Lispro 0 units 10/04/19 11:34 10/23/19 12:06 Humalog SC 2 unit .MILD SLIDING SCALE PRN Administration Mild Correctional Scale Levothyroxine Sodium 50 mcg 10/12/19 06:00 10/28/19 05:57 Synthroid PO 50 mcg 0600 ELY Administration Multivitamins 1 tab 10/26/19 09:00 10/28/19 08:20 Theragran PO 1 tab DAILY ELY Administration Ondansetron HCl 4 mg 10/10/19 10:10 10/11/19 12:36 Zofran IVP 4 mg Q6H PRN Administration Nausea/Vomiting Saccharomyces Boulardii 250 mg 10/13/19 09:00 10/28/19 08:21 Florastor PO 250 mg DAILY ELY Administration Sodium Chloride 10 ml 10/11/19 09:00 10/28/19 08:22 Flush - Normal Saline IVF Not Given Q12HR ELY Venlafaxine HCl 150 mg 10/12/19 09:00 10/28/19 08:20 Effexor Xr PO 150 mg DAILY ELY Administration - Exam General Appearance: NAD Heart: RRR, no gallops Respiratory: no wheezes, no ronchi Gastrointestinal: non-tender, non-distended Extremities: no cyanosis Hosp A/P - Plan DVT proph w/lovenox 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
[2019-10-28] MEDS: metroNIDAZOLE 500 MG TAB PO SCH ×2 (15:35→20:48)
[2019-10-28] MEDS: Atorvastatin Calcium 10 MG TAB PO SCH (20:48)
[2019-10-28] MEDS: Enoxaparin Sodium 40 MG/0.4 ML SYRINGE SC SCH (20:49)
[2019-10-29] MEDS: HYDROcodone/Acetaminophen 7.5/325 mg Tablet PO PRN ×3 (04:07→15:40)
[2019-10-29] MEDS: Vancomycin 1 GM in Premix Bag 1 BAG IVPB SCH ×2 (04:08→15:09)
[2019-10-29] MEDS: Piperacillin/Tazobactam 3.375 GM in Sodium Chloride 0.9% 100 ML IVPB SCH ×3 (05:31→17:08)
[2019-10-29] MEDS: Levothyroxine Sodium 50 MCG TAB PO SCH (05:33)
[2019-10-29] MEDS: metroNIDAZOLE 500 MG TAB PO SCH ×3 (08:06→21:38)
[2019-10-29] MEDS: Multivit, Therapeutic 1 TAB PO SCH (08:06)
[2019-10-29] MEDS: Saccharomyces boulardii 250 MG CAP PO SCH (08:06)
[2019-10-29] MEDS: Famotidine 20 MG TAB PO SCH ×2 (08:06→21:38)
[2019-10-29] MEDS: Venlafaxine HCl XR 150 MG CAP PO SCH (08:06)
[2019-10-29] MEDS: Ascorbic Acid 500 mg Chewable Tablet PO SCH ×2 (08:06→21:38)
--- NOTE | 2019-10-29 13:40 | PDOC.HOSPP ---
- Subjective Encounter Date: 10/29/19 Encounter Time: 09:30 Subjective: Patient seen and examined for med mngt. No fevr/N/V. No new complaints. No overnight events - Objective Vital Signs & Weight: Vital Signs (12 hours) Temp Pulse Resp BP Pulse Ox 10/29/19 08:06 98 10/29/19 07:23 97.9 F 100 18 109/71 98 Weight Admit Weight 216 lb 11.43 oz Weight 216 lb 11.43 oz I&O: 10/28/19 10/29/19 10/30/19 06:59 06:59 06:59 Intake Total 1550 840 Output Total 1400 1075 Balance 150 -235 Result Diagrams: 10/25/19 05:55 10/25/19 05:55 Additional Labs: Accuchecks 10/29/19 10/29/19 10/28/19 10:55 05:25 20:49 POC Glucose 127 H 173 H 107 10/28/19 10/28/19 19:57 16:28 POC Glucose 150 H 157 H Hospitalist ROS - Review of Systems Respiratory: denies: cough, dry, shortness of breath, hemoptysis, SOB with excertion, pleuritic pain, sputum, wheezing, other Cardiovascular: denies: chest pain, palpitations, orthopnea, paroxysmal noc. dyspnea, edema, light headedness, other - Medication Medications: Active Medications Generic Name Dose Route Start Last Admin Trade Name Freq PRN Reason Stop Dose Admin Hydrocodone Bitart/Acetaminophen 2 tab 10/27/19 19:57 10/29/19 09:56 [place] 7.5/325 PO 2 tab Q6H PRN Administration Moderate Pain (4-6) Ascorbic Acid 500 mg 10/25/19 21:00 10/29/19 08:06 Vitamin C PO 500 mg BID ELY Administration Atorvastatin Calcium 10 mg 10/25/19 21:00 10/28/19 20:48 Lipitor PO 10 mg HS ELY Administration Enoxaparin Sodium 40 mg 10/11/19 21:00 10/28/19 20:49 Lovenox SC 40 mg 2100 ELY Administration Famotidine 20 mg 10/12/19 21:00 10/29/19 08:06 Pepcid PO 20 mg BID ELY Administration Dextrose/Water 1,000 mls @ 0 mls/hr 10/04/19 11:34 10/05/19 19:40 D5w IV 1,000 mls .Q0M PRN Administration Hypoglycemia As Directed Piperacillin Sod/Tazobactam 100 mls @ 200 mls/hr 10/22/19 18:00 10/29/19 11: 09 Sod 3.375 gm/ Sodium Chloride IVPB 100 mls Q6HR ELY Administration Vancomycin HCl 1 gm/ Device 200 mls @ 200 mls/hr 10/26/19 04:00 10/29/19 04: 08 IVPB 200 mls 0400,1600 ELY Administration Insulin Human Lispro 0 units 10/04/19 11:34 10/23/19 12:06 Humalog SC 2 unit .MILD SLIDING SCALE PRN Administration Mild Correctional Scale Levothyroxine Sodium 50 mcg 10/12/19 06:00 10/29/19 05:33 Synthroid PO 50 mcg 0600 ELY Administration Metronidazole 500 mg 10/28/19 15:00 10/29/19 08:06 Flagyl PO 500 mg TID ELY Administration Multivitamins 1 tab 10/26/19 09:00 10/29/19 08:06 Theragran PO 1 tab DAILY ELY Administration Ondansetron HCl 4 mg 10/10/19 10:10 10/11/19 12:36 Zofran IVP 4 mg Q6H PRN Administration Nausea/Vomiting Saccharomyces Boulardii 250 mg 10/13/19 09:00 10/29/19 08:06 Florastor PO 250 mg DAILY ELY Administration Sodium Chloride 10 ml 10/11/19 09:00 10/29/19 08:06 Flush - Normal Saline IVF Not Given Q12HR ELY Venlafaxine HCl 150 mg 10/12/19 09:00 10/29/19 08:06 Effexor Xr PO 150 mg DAILY ELY Administration - Exam General Appearance: NAD Heart: RRR, no gallops Respiratory: CTAB, no rales Gastrointestinal: non-tender, normal bowel sounds Extremities: no cyanosis, no clubbing Neurological: no new deficit Hosp A/P - Plan DVT proph w/lovenox, DVT proph w/SCDs 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
[2019-10-29 15:18] LABS: Bacteria/HPF None Seen HPF (None Seen); Bilirubin Negative (Negative); Blood, Urine Negative (Negative); Clarity Clear (Clear); Glucose, Urine (Dipstick) Normal (Negative); Leukocyte 25 Leu/uL (Negative); Nitrite Negative (Negative); Protein, Urine (Dipstick) Negative (Neg-Trace); Squamous Epithelial 0-3 HPF (0-3); Urobilinogen Normal mg/dL (Less than 2); WBC/HPF 0-3 HPF (0-3)
[2019-10-29 15:31] LABS: RBC/HPF 0-3 HPF (0-3); Yeast-Budding 1+ HPF (None Seen)
[2019-10-29 15:32] LABS: Urine Culture Reflex No No
[2019-10-29] MEDS: Atorvastatin Calcium 10 MG TAB PO SCH (21:38)
[2019-10-29] MEDS: Enoxaparin Sodium 40 MG/0.4 ML SYRINGE SC SCH (21:39)
[2019-10-30 00:23] VITALS: BP 144/86; TEMP 98.7
[2019-10-30] MEDS: Piperacillin/Tazobactam 3.375 GM in Sodium Chloride 0.9% 100 ML IVPB SCH (00:26)
[2019-10-30] MEDS ORDERED: Tamsulosin HCl 0.4 MG CAP PO SCH (09:00)
--- NOTE | 2019-10-30 16:50 | DIS ---
DATE OF ADMISSION: 10/04/2019 DATE OF DISCHARGE: 10/30/2019 ADMITTING DIAGNOSES: 1. Parastomal hernia with loss of domain. 2. Incisional hernia, nonobstructing. 3. Diabetes mellitus. 4. Hypothyroidism. 5. Hyperlipidemia. 6. Hypertension. 7. Infected hernia mesh. 8. Chronic ischial sacral decubitus wound. POSTOPERATIVE DIAGNOSES: 1. Parastomal hernia with loss of domain. 2. Incisional hernia, nonobstructing. 3. Diabetes mellitus. 4. Hypothyroidism. 5. Hyperlipidemia. 6. Hypertension. 7. Infected hernia mesh. 8. Chronic ischial sacral decubitus wound. PROCEDURES: On 10/07/2019, debridement of left lower quadrant wound with wound VAC placement. On 10/15/2019, Smart catheter placement by Dr. Madrigal without complication. On 10/25/2019, debridement of sacral ischial decubitus wound. CONDITION AT DISCHARGE: Improved. DISPOSITION: The patient is going to the [facility] for long-term antibiotics and wound care. HOSPITAL COURSE: The patient was admitted with abdominal pain and bloating. His CT scan showed concern for incarceration of a parastomal and incisional hernia. These hernias were reducible. He underwent Gastrografin small bowel follow-through, which was normal. He has a history of chronic multiple abdominal hernia repairs and previous parastomal hernia repairs. He had a chronic draining sinus in his left lower quadrant that was explored to reveal infected mesh. He had partial mesh debridement. He developed transient enterocutaneous fistula at the site that resolved with wound VAC and Smart tunneled catheter placed for long-term antibiotics. The patient never had any significant obstructive symptoms. He was always able to tolerate a regular diet without difficulty. Even on a regular diet, he had no stool draining from his left lower quadrant wound and this wound was granulating in very well with granulation tissue with the wound VAC. There was some concern for osteomyelitis at the base of ischial decubitus wound. He had debridement of this in the operating room. On the day of discharge, the patient is doing well. He is tolerating diet. Dr. Matthews wanted an additional 2 weeks of IV antibiotics. These are going to be done at the [facility]. We will switch to wet-to-dry dressing changes for his left lower quadrant wound and ischial decubitus wound. Any further surgeries are going to have to be done [facility]. The patient has loss of domain and any hernia repair will be very complex in addition with this. His infection in the left lower quadrant would have to resolve before any further hernia repairs. Job ID: [id number]
== END 2019-10-30 02:01 | disposition short-term general hospital (02) | DRG 356 ==
LOC: ERS 22:30 → T4-A 10-04 04:02 → EEVIPCON 10-04 04:02
PROVIDERS: ADMIT Surgery; ATTEND Surgery
PROC: 0JB80ZZ Excision of Abdomen Subcutaneous Tissue and Fascia, Open Approach (ICD-10-PCS; principal; 2019-10-07)
PROC: 0JC80ZZ Extirpation of Matter from Abdomen Subcutaneous Tissue and Fascia, Open Approach (ICD-10-PCS; 2019-10-07)
PROC: 05JY3ZZ Inspection of Upper Vein, Percutaneous Approach (ICD-10-PCS; 2019-10-11)
PROC: 0JH63XZ Insertion of Tunneled Vascular Access Device into Chest Subcutaneous Tissue and Fascia, Percutaneous Approach (ICD-10-PCS; 2019-10-14)
PROC: 02HV33Z Insertion of Infusion Device into Superior Vena Cava, Percutaneous Approach (ICD-10-PCS; 2019-10-14)
PROC: B518YZA Fluoroscopy of Superior Vena Cava using Other Contrast, Guidance (ICD-10-PCS; 2019-10-14)
PROC: 3E0436Z Introduction of Nutritional Substance into Central Vein, Percutaneous Approach (ICD-10-PCS; 2019-10-14)
PROC: 0QB30ZZ Excision of Left Pelvic Bone, Open Approach (ICD-10-PCS; 2019-10-25)
DX: K43.3 Parastomal hernia with obstruction, without gangrene (principal); L89.324 Pressure ulcer of left buttock, stage 4; K63.2 Fistula of intestine; L02.211 Cutaneous abscess of abdominal wall; E87.1 Hypo-osmolality and hyponatremia; E46 Unspecified protein-calorie malnutrition; T85.79XA Infection and inflammatory reaction due to other internal prosthetic devices, implants and grafts, initial encounter; M86.452 Chronic osteomyelitis with draining sinus, left femur; Z20.828 Contact with and (suspected) exposure to other viral communicable diseases; E03.9 Hypothyroidism, unspecified; E78.5 Hyperlipidemia, unspecified; F19.11 Other psychoactive substance abuse, in remission; B95.62 Methicillin resistant Staphylococcus aureus infection as the cause of diseases classified elsewhere; B96.5 Pseudomonas (aeruginosa) (mallei) (pseudomallei) as the cause of diseases classified elsewhere; B96.4 Proteus (mirabilis) (morganii) as the cause of diseases classified elsewhere; E11.22 Type 2 diabetes mellitus with diabetic chronic kidney disease; E66.9 Obesity, unspecified; I12.9 Hypertensive chronic kidney disease with stage 1 through stage 4 chronic kidney disease, or unspecified chronic kidney disease; N18.2 Chronic kidney disease, stage 2 (mild); D53.9 Nutritional anemia, unspecified; F41.9 Anxiety disorder, unspecified; Y83.1 Surgical operation with implant of artificial internal device as the cause of abnormal reaction of the patient, or of later complication, without mention of misadventure at the time of the procedure; E11.69 Type 2 diabetes mellitus with other specified complication; K43.2 Incisional hernia without obstruction or gangrene; E87.6 Hypokalemia; E83.42 Hypomagnesemia; Z90.49 Acquired absence of other specified parts of digestive tract; Z93.3 Colostomy status; Z89.519 Acquired absence of unspecified leg below knee; Z87.891 Personal history of nicotine dependence; Z93.2 Ileostomy status; Z86.59 Personal history of other mental and behavioral disorders; Z68.36 Body mass index [BMI] 36.0-36.9, adult; Z89.612 Acquired absence of left leg above knee
CPT/HCPCS: 36415; 36416; 36569; 71045; 72197; 74177; 74250; 80048; 80053; 80202; 81001; 83605; 83690; 83735; 84100; 85007; 85025; 85027; 87070; 87077; 87186; 87205; 87635; 96374; 96375; 96376; C1751; C1769; J0171; J0690; J1642; J1644; J1650; J1885; J2001; J2250; J2270; J2405; J2543; J2550; J2704; J3010; J3370; J3475; J3480; J3490; J7050; Q9963; Q9967; S0020; S0028; U0003